=== PATIENT | female | born 1995 | race Two or more races ===

== ENCOUNTER 2025-02-18 09:05 | Emergency (ER) | payer OTHER, SELFPAY ==
--- OUTSIDE RECORDS SUMMARY | 2024-12-07 10:15 | XMS_ITS ---
Author Organization [facility] es Address [address] [place] [address] Care Team Providers Care Program Development Manager Name Role Phone Levon Koehler Primary Care Provider [phone] REASON FOR VISIT 1 month f/u Encounters Encounter Location Date Provider Diagnosis [facility] [address] [place] [address] 2024 Levon Koehler Plan Of Treatment Next Appt Details Provider Name:Levon Koehler, 03/14/2025 01:15:00 PM, [address] [place], [address], Progress Notes * GÓMEZ MYERS BDOB:1994 (29 yo F)Acc No.[id number]:12/07/2024 Behavioral Health Patient: Harman MCCRAY CHERAQUEL Marquez Provider: ABEBE Gamble :1995 A ge:29 Y S ex:Female Date:12/07/2024 Address:[address] [facility] [facility] Subjective: * Chief Complaints: * 1 . 1 month f/u. * Medical History: Objective: * Vitals: Assessment: Plan: * Treatment: * Images: * Electronic signature of ABEEB Fletcher on 02/18/2025 at 10:13 AM EDT Sign off status: Pending * Provider: ABEBE Gamble Date: 0 12/07/2024 Generated for Printi ng/Pedro/Luisitting on: 0 02/18/2025 10:13 AM EDT
--- OUTSIDE RECORDS SUMMARY | 2024-12-09 05:00 | XMS_ITS ---
Author Organization [facility] es Address [address] [place] [address] Care Team Providers Care Application Support Manager Name Role Phone Levon Koehler Primary Care Provider REASON FOR VISIT 1 MONTH F/U R/S FROM 12/07 Encounters Encounter Location Date Provider Diagnosis [facility] [address] [place] [address] 2024 Levon Koehler Plan Of Treatment Next Appt Details Provider Name:Levon Koehler, 03/14/2025 01:15:00 PM, [address] [place], [address], Progress Notes * LUCIAGÓMEZ PINEDA BDOB:1994 (29 yo F)Acc No.[id number]:12/09/2024 Behavioral Health Patient: CHRISTIAN RITCHIEKRISTI Marquez Provider: ABEBE Gamble :1995 A ge:29 Y S ex:Female Date:12/09/2024 Address:[address], [address], [place], [place] Subjective: * Chief Complaints: * 1 . 1 MONTH F/U R/S FROM 12/07. * Medical History: Objective: * Vitals: Assessment: Plan: * Treatment: * Images: * Electronic signature of ABEBE Fletcher on 02/18/2025 at 10:13 AM EDT Sign off status: Pending * Provider: ABEBE Gamble Date: 0 12/09/2024 Generated for Lianne benjamin/Pedro/Boris on: 0 02/18/2025 10:13 AM EDT
--- OUTSIDE RECORDS SUMMARY | 2025-02-06 09:15 | XMS_ITS ---
Author Organization [facility] es Address [address] [place] [address] Care Team Providers Care Baking Powder Mixer Name Role Phone Levon Koehler Primary Care Provider Allergies No Known Allergies REASON FOR VISIT BH F/U, Pt here for f/u. Pt went through a miscarriage in October and relapsed. Currently 40 days clean. Left [facility] today and is in [facility] in [place]. Mood is better, sleep is good, appetite has increased. [facility] Medications Medication SIG (Take, Route, Frequency, Duration) Notes Start Date End Date Status busPIRone HCl 5 MG Oral; Duration: 30 Days Active Naltrexone HCl 50 MG 1 tablet Oral twice a day; Duration: 30 days Active PROzac 20 MG 1 capsule Orally Onc e a day Not-Taking hydrOXYzine Pamoate 25 MG 1 capsule Oral ly three times a day (tid) as needed (prn); Duration: 30 days 04/19/2024 Not-Taking Prazosin HCl 2 MG 1 capsule at bedtime Oral Once a day; Duration: 30 days Active Propranolol HCl 40 MG 1 tablet Orally tw ice a day (bid) as needed (prn); Duration: 30 days 04/19/2024 Active traZODone HCl 50 MG 1 tablet at bedtime as needed Orally Once a day; Duration: 30 days 11/09/2024 Active carBAMazepine 200 MG 1 tablet Orally Twi ce a day; Duration: 30 days 11/09/2024 Active QUEtiapine Fumarate 100 MG 1 tablet Oral ly Once a day; Duration: 30 days 04/19/2024 Active ALPRAZolam 0.5 MG 1 tablet Orally Twice a day; Duration: 30 days As needed 02/06/2025 Active Vraylar 3 MG 1 capsule Orally Onc e a day; Duration: 30 days 04/19/2024 Active Gabapentin 400 MG 1 capsule Orally twi ce a day; Duration: 30 days 04/19/2024 Active Social History Tobacco Use: Social History Observation Description Date Details (start date - stop date) Unknown Alcohol Screening: Question Answer Notes Did you have a drink containing alcohol in the p ast year? No Points 0 Interpretation Negative Depression Screening (PHQ-9): Question Answer Notes Little interest or pleasure in doing things Near ly every day Feeling down, depressed, or hopeless Nearly ever y day Trouble falling or staying a sleep, or sleeping too much Nearly every day Feeling tired or having little energy Nearly bernarda ry day Poor appetite or overeating Nearly every day Feeling bad about yourself-o r that you are a failure or have let yourself or your family down Several days Trouble concentrating on thi ngs, such as reading the newspaper or watching television Several days Moving or speaking so slowly that other people could have noticed. Or the opposite being so fidgety or restless that you have been moving around a lot more than usual Not at all Thoughts that you would be b andreia off , or of hurting yourself in some way Not at all Total Score 17 Intepretation Moderately severe depression Tobacco Control (Standard) Question Answer Notes Tobacco use: Uses tobacco in other forms Problems Problem Type SNOMED Code ICD Code Onset Dates Problem Status W/U Status Risk Notes Problem Posttraumatic stress disorder (32256322) PTSD (post-traumati c stress disorder) (F43.10) Active confirmed Problem Opioid dependence in remission (485798108) Opioid dependence in remission (F11.21) Active confirmed Vital Signs Height 62 in 02/06/2025 Weight 194.4 lbs 02/06/2025 BMI 35.55 kg/m2 02/06/2025 Blood pressure systolic 151 mm Hg 02/07/20 25 Blood pressure diastolic 91 mm Hg 025 Oximetry 98 % 02/06/2025 Heart Rate 100 /min 02/06/2025 Encounters Encounter Location Date Provider Diagnosis [facility] [address] [place] [address] 02/06/2025 Levon Zakia Bipolar disorder, cu rrent episode mixed, moderate F31.62 ; PTSD (post-traumatic stress disorder) F43.10 and Opioid dependence in remission F11.21 Assessments Encounter Date Diagnosis (ICD Code) Assessment Notes Treatment Notes Treatment Clinical Notes Section Notes 02/06/2025 Bipolar disorder, current episode mixed, moderate (ICD-10 - F31.62) Patient will continue current treatment plan. Patient verbally acknowledges understanding instructions including medication education and has no further questions comments or concerns at this time. . Follow in 1 Month . Recommended treatment for Bipolar disorder includes FDA approved and OFF label medications: second generation antipsychotics and mood stabilizers. Discussed life threatening side effect of Lamotrigine. Pt is to monitor for new skin rashes or sensation of a sunburn or itchiness or redness, mouth sores or sores in mucus membranes, and call provider immediately and or go to ER, and stop the medication. Second generation antipsychotic medications can cause headache, drowsiness, agitation, dizziness, nausea, or extrapyramidal symptoms such as tremors, muscle spasms, slowness of movement or jerking of muscles. . Stable . The patient verbalizes understanding with all questions answered thoroughly and is in agreement with treatment plan. . Continue current treatment. Call for problems . GOALS: . Maintain medication regimen . _Improve mood stability . _Improve anxiety control . _Improve social and interpersonal functioning . Patient/Guardian will call sooner if symptoms worsen. Patient understands to go to ER if needed if symptoms become severe. . Crisis Intervention plan was discussed and agreed upon. Patient/Guardian will call 911 in case of emergency. Emergency contact information was provided to the patient/guardian. . Pharmacological management: . Alternative medication plans were discussed with the patient/guardian. All relevant side effects and potential adverse effects were discussed with the patient/guardian. Standard cautions and potential benefits were discussed. Patient/Guardian consented to the start/continuation of the treatment. 02/06/2025 PTSD (post-traumatic stress disorder) (ICD-10 - F43.10) 02/06/2025 Opioid dependence in remission (ICD-10 - F11.21) Plan Of Treatment Medication Medication Name Sig Start Date Stop Date Notes Naltrexone HCl 50 MG 1 tablet Oral twice a day; Duration: 30 days Prazosin HCl 2 MG 1 capsule at bedtime Oral Once a day; Duration: 30 days traZODone HCl 50 MG 1 tablet at bedtime as needed Orally Once a day; Duration: 30 days 11/09/2024 carBAMazepine 200 MG 1 tablet Orally Twi ce a day; Duration: 30 days 11/09/2024 QUEtiapine Fumarate 100 MG 1 tablet Oral ly Once a day; Duration: 30 days 04/19/2024 ALPRAZolam 0.5 MG 1 tablet Orally Twic e a day; Duration: 30 days 02/06/2025 Vraylar 3 MG 1 capsule Orally Onc e a day; Duration: 30 days 04/19/2024 Gabapentin 400 MG 1 capsule Orally twi ce a day; Duration: 30 days 04/19/2024 Next Appt Details Follow Up: 4 Weeks, Reason: med check Provider Name:Levon Koehler, 03/14/2025 01:15:00 PM, [address] [place] [address], [address], Progress Notes * GÓMEZ MYERS BDOB:1994 (29 yo F)Acc No.[id number]:02/06/2025 Behavioral Health Patient: Harman EDWIN GÓMEZ B Provider: ABEBE Gamble :1995 A ge:29 Y S ex:Female Date:02/06/2025 Address:[address] [place] [address], [place] [id number] Subjective: * Chief Complaints: * B H F/UPt here for f/u. Pt went through a miscarriage in October and relapsed. Currently 40 days clean. Left [facility] today and is in [facility] in [place]. Mood is better, sleep is good, appetite has increased. KS[facility] * HPI: C onstitutional: Patient is here for a follow-up appointment patient currently in a [facility] for an opioid relapse. Patient did detox and was recently released to the [facility] house. Patient is to reestablish with mental health care as is not offered at the fdc house. They did add naltrexone which we will continue in prazosin for PTSD. All other medications were continued from this this provider. We will continue current treatment plan with the additional medications. * Medical History: * Surgical History: yM YIN INJURY D&C 03/2024 * Hospitalization/Major Diagno stic Procedure: D enies Past Hospitalization * Family History: F ather: . M other: alive. 1 brother(s) , 3 sister(s) - healthy. 3 daughter(s) - healthy. . PATERNAL- CANCER, DM, MENTAL HEALTH MATERNAL- CANCER, DM, MENTAL HEALTH. * Social History: G eneral: A lcohol Screening D id you have a drink containing alcohol in the past year? N o P oints 0 I nterpretation N egative Depression Screening (PHQ-9) L ittle interest or pleasure in doing things?Nearly every day F eeling down, depressed, or hopeless N early every day T rouble falling or staying asleep, or sleeping too much N early every day F eeling tired or having little energy N early every day P oor appetite or overeating N early every day F eeling bad about yourself-or that you are a failure or have let yourself or your family down S everal T rouble concentrating on things, such as reading the newspaper or watching television S ever M oving or speaking so slowly that other people could have noticed. Or the opposite being so fidgety or restless that you have been moving around a lot more than usual N ot at all T houghts that you would be better off , or of hurting yourself in some way N ot at all T otal Score 1 7 I ntepretation M oderately severe depression Transition of Care E R/UC/hospital since last office visit? N o S pecialist seen since last office visit? N o Substance abuse/mental health issues of patient/family P atient - C affeine Use, Stress/Anxiety Social/Support Concerns P atient: N o Ability to understand healthcare/treatment P atient: G ood Communication Barrier L anguage Barrier?: N o T obacco Use: T obacco Control (Standard) T obacco use: U ses tobacco in other forms * Medications: T akingPropranolol HCl 40 MG Tablet 1 tablet Orally twice a day (bid) as needed (prn) Vraylar 3 MG Capsule 1 capsule Orally Once a day Gabapentin 400 MG Capsule 1 capsule Orally twice a day QUEtiapine Fumarate 50 MG Tablet 1-2 tablet at bedtime Orally Once a day traZODone HCl 50 MG Tablet 1 tablet at bedtime as needed Orally Once a day ALPRAZolam 0.5 MG Tablet 1 tablet Orally Twice a day As neededcarBAMazepine 200 MG Tablet 1 tablet Orally Twice a day Naltrexone HCl 50 MG Tablet Oral busPIRone HCl 5 MG Tablet Oral Prazosin HCl 1 MG Capsule Oral Taking Propranolol HCl 40 MG Tablet 1 tablet Orally twice a day (bid) as needed (prn) Taking Vraylar 3 MG Capsule 1 capsule Orally Once a day Taking Gabapentin 400 MG Capsule 1 capsule Orally twice a day Taking QUEtiapine Fumarate 50 MG Tablet 1-2 tablet at bedtime Orally Once a day Taking traZODone HCl 50 MG Tablet 1 tablet at bedtime as needed Orally Once a day Taking ALPRAZolam 0.5 MG Tablet 1 tablet Orally Twice a day As neededTaking carBAMazepine 200 MG Tablet 1 tablet Orally Twice a day Taking Naltrexone HCl 50 MG Tablet Oral Taking busPIRone HCl 5 MG Tablet Oral Taking Prazosin HCl 1 MG Capsule Oral Not-Taking/PRNhydrOXYzine Pamoate 25 MG Capsule 1 capsule Orally three times a day (tid) as needed (prn) PROzac 20 MG Capsule 1 capsule Orally Once a day Not-Taking/PRN hydrOXYzine Pamoate 25 MG Capsule 1 capsule Orally three times a day (tid) as needed (prn) Not-Taking/PRN PROzac 20 MG Capsule 1 capsule Orally Once a day * Allergies: N .K.D.A.no[Allergies Verified] Objective: * Vitals: H t: 62 in, Wt: 194.4 lbs, BMI:35.55Index, BP: 151/91 mm Hg, SaO2:98%, HR: 100 /min. * Examination: G eneral Examination: GENERAL APPEARANCE: A lert and oriented, cooperative. NEUROLOGIC EXAM: a lert and oriented x 3, no tremor, normal gait, appropriate for age. PSYCH g ood eye contact, oriented to person, oriented to place, oriented to time, appropriate mood and affect, denies SI/HI, affect normal, affect appropriate, appropriate for age, good eye contact, no thought disorder. General . AIMS EXAM:.AIMS Muscles of Facial Expression: NoneAIMS Lips and Perioral Area: NoneAIMS Jaw Area Involuntary Movements: NoneAIMS Tongue Involuntary Movements: NoneAIMS Upper Arms, Wrists, Hands, Fingers: NoneAIMS Lower Legs, Knees, Ankles, Toes: NoneAIMS Overall Abnormal Movement Severity: NoneAIMS Incapacitation Abnormal Movement: NoneAIMS Self Awareness of Abnormal Movement: Aware, None notedAIMS Current Teeth, Denture Problems: NoAIMS Movements Disappear in Sleep: No. .MENTAL STATUS EXAM:.Appearance: Appropriately dressed and groomed, good eye contact, cooperative, pleasantBehavior/Motor Activity: NormalGait/Station: Within normal limitsBH Speech: NormalMood: GoodAffect: FullThought processes/Associations: Logical and goal directedThought Content: Non-psychoticCognition/Attention/Memory/Concentration: Alert and oriented x 4; grossly intact attention; memory-recent/remote judged adequate by interviewerInsight: GoodJudgement: GoodBH language: Within normal limitsFund of Knowledge: Adequate.. Assessment: * Assessment: 1. B ipolar disorder, current episode mixed, moderate - F31.62 (Primary) 2 .?PTSD (post-traumatic stress disorder) - F43.10 3 . O pioid dependence in remission - F11.21 Plan: * Treatment: 2. P TSD (post-traumatic stress disorder) Refill Prazosin HCl Capsule, 2 MG, 1 capsule at bedtime, Oral, Once a day, 30 days, 30 Capsule, Refills 3. 3. O pioid dependence in remission Refill Naltrexone HCl Tablet, 50 MG, 1 tablet, Oral, twice a day, 30 days, 60 Tablet, Refills 3.? * Procedure Codes: 3 080F DIAST BP = 90 MM [id number] SYST BP >= 140 MM HG * Follow Up: 4 Weeks (Reason: med check) * Images: * Sign off status: Completed true * Provider: ABEBE Gamble Date: 02/06/2025 Generated for Lianne benjamin/Pedro/Boris on: 02/18/2025 10:13 AM EDT History and Physical Notes * Examination Category Sub-Category Detail Notes Category Not es General Examination GENERAL APPEARANCE: Alert an d oriented, cooperative NEUROLOGIC EXAM: alert and oriented x 3, no tremor, normal gait, appropriate for age DIABETIC FOOT EXAM Monofilament: normal PSYCH good eye contact, or iented to person, oriented to place, oriented to time, appropriate mood and affect, denies SI/HI, affect normal, affect appropriate, appropriate for age, good eye contact, no thought disorder General .AIMS EXAM:.AIMS Mus cles of Facial Expression: NoneAIMS Lips and Perioral Area: NoneAIMS Jaw Area Involuntary Movements: NoneAIMS Tongue Involuntary Movements: NoneAIMS Upper Arms, Wrists, Hands, Fingers: NoneAIMS Lower Legs, Knees, Ankles, Toes: NoneAIMS Overall Abnormal Movement Severity: NoneAIMS Incapacitation Abnormal Movement: NoneAIMS Self Awareness of Abnormal Movement: Aware, None notedAIMS Current Teeth, Denture Problems: NoAIMS Movements Disappear in Sleep: No. .MENTAL STATUS EXAM:.Appearance: Appropriately dressed and groomed, good eye contact, cooperative, pleasantBehavior/Motor Activity: NormalGait/Station: Within normal limitsBH Speech: NormalMood: GoodAffect: FullThought processes/Associations: Logical and goal directedThought Content: Non-psychoticCognition/Attention/Memory/Concentration: Alert and oriented x 4; grossly intact attention; memory-recent/remote judged adequate by interviewerInsight: GoodJudgement: GoodBH language: Within normal limitsFund of Knowledge: Adequate.
[2025-02-18 09:15] VITALS: BP 98/78; PULSE 108; TEMP 37.2; O2SAT 99; BMI 33.8
--- NOTE | 2025-02-18 09:46 | ED.GENADUL1 ---
HPI HPI - General Adult General Chief complaint: Abdominal Pain Stated complaint: VOMITING STOMACH PAIN Time Seen by Provider: 02/18/25 09:20 Source: patient Mode of arrival: walk-in History of Present Illness HPI narrative: 29-year-old female presents for nausea vomiting diarrhea and abdominal pain which began at 3:00 this morning. She has had multiple episodes of diarrhea and her pain is severe and continuous. Related Data Home Medications ?Medication ?Instructions ?Recorded ?Confirmed alprazolam 0.5 mg tablet 0.5 mg PO PRN anxiety 02/18/25 carbamazepine 200 mg tablet 200 mg PO 02/18/25 cariprazine 3 mg capsule (Vraylar) 3 mg PO DAILY 02/18/25 02/18/25 hydroxyzine pamoate 50 mg capsule mg 02/18/25 naltrexone 50 mg tablet 50 mg PO BID 02/18/25 02/18/25 propranolol 40 mg tablet 40 mg PO 02/18/25 Previous Rx's ?Medication ?Instructions ?Recorded dicyclomine 10 mg capsule 10 mg PO QID PRN abdominal pain 02/18/25 #20 caps ondansetron 4 mg disintegrating 4 mg PO Q6H PRN nausea and 02/18/25 tablet vomiting #20 tabs Allergies Allergy/AdvReac Type Severity Reaction Status Date / Time No Known Drug Allergies Allergy Verified 02/18/25 09:19 Opioid HPI Opioid Management Most Recent Opioid Data: Ur Phencyclidine Scrn, (NEGATIVE) Negative Today, 14:14 Review of Systems ROS Narrative A ten point review of systems is negative except as noted above. Exam Narrative Exam Narrative: Nurses note and vital signs reviewed and patient is not hypoxic. General: The patient appears uncomfortable and is rolling around on the bed. Skin: Warm, dry, no pallor noted. There is no rash noted. Head: Normocephalic, atraumatic Eye: Normal conjunctiva, no drainage Ears, Nose, Mouth, and Throat: oral mucosa is moist. Nares patent. Cardiovascular: Regular Rate and Rhythm Respiratory: Patient is in no distress, no accessory muscle use, lungs are clear to auscultation, no wheezing, rales or rhonchi Back: non-tender GI: Nondistended, diffusely tender Musculoskeletal: The patient has no evidence of calf tenderness, no pitting edema, symmetrical pulses noted bilaterally Neurological: A&O, normal speech Psychiatric: Cooperative Constitutional Vital Signs, click to edit/add: Last Vital Signs Temp 99 F 02/18/25 09:15 Pulse 87 02/18/25 13:22 Resp 18 02/18/25 13:22 BP 139/89 02/18/25 11:27 Pulse Ox 100 02/18/25 13:22 Course Vital Signs Vital signs: Vital Signs Temperature 99 F 02/18/25 09:15 Pulse Rate 108 H 02/18/25 09:15 Respiratory Rate 20 02/18/25 09:15 Blood Pressure 98/78 02/18/25 09:15 Pulse Oximetry 99 02/18/25 09:15 Temperature 99 F 02/18/25 09:15 Pulse Rate 87 02/18/25 13:22 Respiratory Rate 18 02/18/25 13:22 Blood Pressure 139/89 02/18/25 11:27 Pulse Oximetry 100 02/18/25 13:22 Medical Decision Making MDM Narrative Medical decision making narrative: The patient feels very much better and is essentially asymptomatic at this point. She seems to have improved the most after she was given IM Bentyl. CAT scan shows cysts on her right kidney and she has microscopic hematuria. No evidence of colitis or diverticulitis. The importance of following up with family physician and reference librarian was discussed thoroughly. Differential Diagnosis Differential Diagnosis: Gastroenteritis, colitis, diverticulitis, UTI Lab Data Lab results reviewed: Yes I reviewed the patient's lab results Labs: Lab Results 02/18/25 02/18/25 02/18/25 Range/Units 10:56 11:31 14:14 WBC 17.6 H (4.0-11.0) 10^3/uL RBC 5.10 (4.20-5.40) 10^6/uL Hgb 14.5 (12.0-16.0) g/dL Hct 44.5 (36.0-48.0) % MCV 87.3 (81.0-99.0) fL MCH 28.4 (26.7-34.0) pg MCHC 32.6 (29.9-35.2) g/dL RDW 11.6 (11.0-15.0) % Plt Count 417 (150-450) 10^3/uL MPV 8.6 L (9.5-13.5) fL Seg Neuts % (Manual) 76.0 H (43.0-75.0) Band Neutrophils % 13.0 H (0-5) % Lymphocytes % (Manual) 6.0 L (20.5-60.0) % Monocytes % (Manual) 5.0 (1.7-12.0) % Eosinophils % (Manual) 0.0 L (0.9-7.0) % Basophils % (Manual) 0.0 L (0.2-2.0) % Neutrophils # (Manual) 13.37 H (1.4-6.5) 10^3/uL Band Neutrophils # 2.3 H (0.0-0.3) 10^3/uL Lymphocytes # (Manual) 1.05 L (1.20-3.80) 10^3/uL Monocytes # (Manual) 0.88 H (0.30-0.80) 10^3/uL Eosinophils # (Manual) 0.00 (0.00-0.70) 10^3/uL Basophils # (Manual) 0.00 (0.00-0.10) 10^3/uL Sodium 139 142 (136-145) mmol/L Potassium 6.2 H* 5.9 H (3.5-5.1) mmol/L Chloride 102 107 (98-107) mmol/L Carbon Dioxide 23.1 25.0 (21.0-32.0) mmol/L Anion Gap 20.1 15.9 BUN 19.0 H 20.0 H (7.0-18.0) mg/dL Creatinine 0.71 0.65 (0.55-1.02) mg/dL Est GFR ( Amer) >60 >60 (>=60 mL/min/1.73m^2) Est GFR (Non-Af Amer) >60 >60 (>=60 mL/min/1.73m^2) BUN/Creatinine Ratio 26.8 30.8 Glucose 129 H 120 H (74-106) mg/dL Calcium 10.2 H 8.9 (8.5-10.1) mg/dL Total Bilirubin 0.2 (0.2-1.0) mg/dL Direct Bilirubin <0.1 (0.0-0.2) mg/dL AST 26 (15-37) U/L ALT 28 (14-59) U/L Alkaline Phosphatase 106 (46-116) U/L Total Protein 7.3 (6.4-8.2) g/dL Albumin 4.2 (3.4-5.0) g/dL Globulin 3.1 g/dL Albumin/Globulin Ratio 1.4 Amylase 38 (25-115) U/L Lipase 23.0 (16.0-77.0) U/L Serum HCG, Qual Negative (NEGATIVE) Urine Color Lt. yellow (YELLOW) Urine Clarity Clear (CLEAR) Urine pH 5.5 (5.0-9.0) Ur Specific [place] <=1.005 A (1.005-1.025) Urine Protein Negative (NEG/TRACE) mg/dL Urine Glucose (UA) Negative (NEGATIVE) mg/dL Urine Ketones Negative (NEGATIVE) mg/dL Urine Occult Blood Moderate A (NEGATIVE) Urine Nitrite Negative (NEGATIVE) Urine Bilirubin Negative (NEGATIVE) Urine Urobilinogen 0.2 (0.2-1.0) EU/dL Ur Leukocyte Esterase Negative (NEGATIVE) Urine RBC 10-20 A (0-2) #/HPF Urine WBC None seen (NONE SEEN) #/HPF Ur Squamous Epith Cells Rare (NONE/RARE) #/LPF Urine Crystals None seen (None Seen) #/HPF Urine Bacteria Trace A (NONE SEEN) #/HPF Urine Casts None seen (NONE SEEN) #/LPF Urine Mucus None seen (NONE SEEN) Ur Culture Indicated? No Urine Opiates Screen Negative (NEGATIVE) Ur Buprenorphine Scrn Negative (NEGATIVE) Ur Oxycodone Screen Negative (NEGATIVE) Urine Methadone Screen Negative (NEGATIVE) Ur Barbiturates Screen Negative (NEGATIVE) U Tricyclic Antidepress Negative (NEGATIVE) Ur Phencyclidine Scrn Negative (NEGATIVE) Ur Amphetamines Screen Negative (NEGATIVE) U Methamphetamines Scrn Negative (NEGATIVE) U Benzodiazepines Scrn Positive A (NEGATIVE) Urine Cocaine Screen Negative (NEGATIVE) U Cannabinoids Screen Negative (NEGATIVE) Imaging Data CT scan - abdomen: Radiologist's impression: ITS Impressions Abdomen/Pelvis CT 02/18/25 11:29 IMPRESSION: Negative acute inflammatory process or bowel obstruction. Heterogeneous appearance of the right kidney with multifocal hypodensities noted. Attenuation values may favor multifocal hemorrhagic and proteinaceous cysts. Impression dictated by: Sigifredo Matthews M.D. 02/18/2025 12:35 PM Dictation Location: [place] [address] Electronically authenticated by: [id number] Y Date: 02/18/2025 12:35 ECG Data Attestation: I personally reviewed and interpreted this ECG as follows: (EKG on my interpretation shows sinus rhythm with a rate of 97 and no acute change) Discharge Plan Discharge Chief Complaint: Abdominal Pain Clinical Impression: Diarrhea, Nausea and vomiting, Renal cyst, Hematuria, microscopic Patient Disposition: Home, Self-Care Time of Disposition Decision: 14:53 Condition: Good Mode of Transportation: Private Vehicle Prescriptions / Home Meds: New ondansetron 4 mg tablet,disintegrating 4 mg PO Q6H PRN (Reason: nausea and vomiting) Qty: 20 0RF dicyclomine 10 mg capsule 10 mg PO QID PRN (Reason: abdominal pain) Qty: 20 0RF No Action alprazolam 0.5 mg tablet 0.5 mg PO PRN (Reason: anxiety) hydroxyzine pamoate 50 mg capsule propranolol 40 mg tablet 40 mg PO naltrexone 50 mg tablet 50 mg PO BID carbamazepine 200 mg tablet 200 mg PO Vraylar 3 mg capsule 3 mg PO DAILY Print Language: Georgian Instructions: Acute Nausea and Vomiting (ED), Acute Diarrhea (ED) Additional Instructions: Follow-up with PCP, list provided. You should see a reference librarian (kidney doctor) about the cysts on your right kidney. Referrals: Physician,Non-Staff, MD [Primary Care Provider] - 1 week
--- OUTSIDE RECORDS SUMMARY | 2025-02-18 10:13 | XMS_ITS | Patient Health Record ---
Author Organization [employer] [facility] Address [address] [place] [address] Care Team Providers Care Environmental Web Crawler Name Role Phone Zakia Levon Primary Care Provider Dr. Baldo Bui Unavailable [phone] Chelsie Sanchez Unavailable [phone] Magalie Cervantes Unavailable [phone] Allergies No Known Allergies Results Component Value Reference Range Notes urine Reviewed date:03/02/2024 01:45:40 PM Interpretation:POSITIVE Performing Lab: Notes/Report: POSITIVE result POSITIVE Reason For Referral No Information Medications Medication SIG (Take, Route, Frequency, Duration) Notes Start Date End Date Status Propranolol HCl 40 MG 1 tablet Orally tw ice a day (bid) as needed (prn); Duration: 30 days 04/19/2024 Active busPIRone HCl 5 MG Oral; Duration: 30 Days Active Naltrexone HCl 50 MG 1 tablet Oral twice a day; Duration: 30 days Active Vraylar 3 MG 1 capsule Orally Onc e a day; Duration: 30 days 04/19/2024 Active traZODone HCl 50 MG 1 tablet at bedtime as needed Orally Once a day; Duration: 30 days 11/09/2024 Active PROzac 20 MG 1 capsule Orally Onc e a day Not-Taking hydrOXYzine Pamoate 25 MG 1 capsule Oral ly three times a day (tid) as needed (prn); Duration: 30 days 04/19/2024 Not-Taking Gabapentin 400 MG 1 capsule Orally twi ce a day; Duration: 30 days 04/19/2024 Active carBAMazepine 200 MG 1 tablet Orally Twi ce a day; Duration: 30 days 11/09/2024 Active QUEtiapine Fumarate 100 MG 1 tablet Oral ly Once a day; Duration: 30 days 04/19/2024 Active Prazosin HCl 2 MG 1 capsule at bedtime Oral Once a day; Duration: 30 days Active ALPRAZolam 0.5 MG 1 tablet Orally Twice a day; Duration: 30 days As needed 02/06/2025 Active Social History Tobacco Use: Social History [...] Problem Status W/U Status Risk Notes Problem Tobacco user (620187716) Nicotine dependence, unspecified, uncomplicated (F17.200) Active confirmed Problem Mixed bipolar affective disorder, moderate (321841588) Bipolar disorder, current episode mixed, moderate (F31.62) Active confirmed Problem Acute stress reaction (34727990) Acute stress reaction (F43.0) Active confirmed Problem Anxiety (24082671) Anxiety (F41.9) Active confirmed Problem Posttraumatic stress disorder (54898022) PTSD (post-traumatic stress disorder) (F43.10) Active confirmed Problem Opioid dependence in remission (335940328) Opioid dependence in remission (F11.21) Active confirmed Problem Adjustment disorder with mixed emotional features (43955846) Situational mixed anxiety and depressive disorder (F43.23) Active confirmed Vital Signs Heart Rate 100 /min 02/06/2025 Temperature 98.2 degrees Fahrenheit 08/09/2024 Blood pressure diastolic 91 mm Hg 02/06/2025 Oximetry 98 % 02/06/2025 Height 62 in 02/06/2025 Blood pressure systolic 151 mm Hg 02/06/2025 Weight 194.4 lbs 02/06/2025 BMI 35.55 kg/m2 02/06/2025 Encounters Encounter Location Date Provider Diagnosis [place] [address] [place] [address] 03/02/2024 Magalie Cervantes Fatigue, unspecified type R53.83 and Nicotine dependence, unspecified, uncomplicated F17.[address] [address] 04/19/2024 [facility] Bipolar disorder, current episode mixed, moderate F31.[address] [address] 02/06/2025 [facility] Bipolar disorder, current episode mixed, moderate F31.62 ; PTSD (post-traumatic stress disorder) F43.10 and Opioid dependence in remission F11.[address] [address] 05/17/2024 [facility] Bipolar disorder, current episode mixed, moderate F31.[address] [address] 06/14/2024 [facility] Bipolar disorder, current episode mixed, moderate F31.62 and Anxiety F41.9 [address] [place] [address] 08/09/2024 [facility] Bipolar disorder, current episode mixed, moderate F31.[address] [address] 11/09/2024 [facility] Bipolar disorder, current episode mixed, moderate F31.62 [facility] [address] [place] [address] 02/19/2024 Magalie Cervantes [address] [place] [address] 02/22/2024 Magalie Cervantes [facility] [address] [place] [address] 07/13/2024 [facility] Bipolar disorder, current episode mixed, moderate F31.62 [facility] [address] [place] [address] 10/07/2024 [facility] Bipolar disorder, current episode mixed, moderate F31.62 [facility] [address] [place] [address] 11/16/2024 [facility] [place] [address] [place] [address] 03/05/2024 Baldo Bui [place] [address] [place] [address] 08/31/2024 [facility] Bipolar disorder, current episode mixed, moderate F31.62 [place] [address] [place] [address] 10/07/2024 [facility] Bipolar disorder, current episode mixed, moderate F31.62 [facility] [address] [place] [address] 12/06/2024 [facility] Bipolar disorder, current episode mixed, moderate F31.62 Assessments Encounter Date Diagnosis (ICD Code) Assessment Notes Treatment Notes Treatment Clinical Notes Section Notes 08/09/2024 Bipolar disorder, current episode mixed, moderate (ICD-10 [...] consented to the start/continuation of the treatment. 10/07/2024 Bipolar disorder, current episode mixed, moderate (ICD-10 - F31.62) 04/19/2024 Bipolar disorder, current episode mixed, moderate (ICD-10 - F31.62) Patient will travel Vraylar 1.5 mg for the next 30 days samples provided from office stock. Patient also will use gabapentin b 300 mg twice a day, as needed hydroxyzine, propranolol, and Seroquel at night for sleep. Follow up in 30 days to discuss and evaluate this treatment plan. patient verbally acknowledges understanding instructions including medication education and has no further questions comments or concerns at this time. Sed on DSM V, this patient meets the criteria for the diagnosis of: _ . Bipolar 1 Disorder . Recommended treatment is: _ Recommended treatment for Bipolar disorder includes FDA [...] of movement or jerking of muscles. . The patient verbalizes understanding with all questions answered thoroughly and is in agreement with treatment plan. . . Continue current treatment Tolerating meds well, compliant Call for problems . GOALS: . Maintain medication regimen _Improve mood stability _Improve anxiety control _Improve social and interpersonal functioning . Informed consent obtained: YES, we discussed the diagnosis/diagnose s, the treatment options, treatment(s) recommended vs. no treatment. We discussed risks and benefits of treatment options, treatment recommendations vs. no treatment. . Currently at low risk for self harm. Denies ongoing feelings of hopelessness. Denies ongoing suicidal ideation, intent or plan in session. . 06/14/2024 Bipolar disorder, current episode mixed, moderate (ICD-10 - F31.62) Informed consent obtained: YES, we discussed the diagnosis/diagnose s, the treatment options, treatment(s) recommendations vs. no treatment. We discussed risks and benefits of treatment options, treatment recommendations vs. no treatment. Currently at low risk for self harm. Denies ongoing feelings of hopelessness. Denies ongoing suicidal ideation, intent or plan in session. Pharmacological management: Alternative medication plans were discussed with the patient and or guardian. All relevant and serious adverse effects were discussed. Standard precautions and potential benefits were discussed. Patient/Guardian consented to begin medication/ continue treatment plan. questions answered satisfactorily, agreeable to treatment plan Cont current treatment Tolerating meds well, compliant Call for problems Follow up 3 months Patient/Guardian will call sooner if symptoms worsen. Patient understands to go to the ER if needed if symptoms become severe. Crisis intervention plan was discussed and agreed upon. Patient/Guardian will call 911 in case of emergency. Emergency contact information was provided to the patient/guardian. 02/06/2025 Bipolar disorder, current episode mixed, moderate [...] PTSD (post-traumatic stress disorder) (ICD-10 - F43.10) 08/31/2024 Bipolar disorder, current episode mixed, moderate (ICD-10 - F31.62) 05/17/2024 Bipolar disorder, current episode mixed, moderate (ICD-10 - F31.62) Patient will alter current treatment plan. Patient will increase Vraylar to 3 mg samples provided from sample stock. Patient will also increase Seroquel for improved sleep hygiene, prescription also given for as needed alprazolam 0.25 mg twice daily for anxiety. Patient verbally acknowledges understanding instructions including medication [...] consented to the start/continuation of the treatment. 03/02/2024 Fatigue, unspecified type (ICD-10 - R53.83) Urine HCG positive. She follows with Dr. Morrell, educated to call his office to notify of positive result and menses two months late. ER for any acute changes in condition. 11/09/2024 Bipolar disorder, current episode mixed, moderate (ICD-10 - F31.62) Patient will add carbamazepine 200 mg twice daily and follow up in 30 days to discuss and evaluate. Trazodone 50 mg also added for increased sleep hygiene. Patient will continue current treatment plan. Patient [...] benefits were discussed. Patient/Guardian consented to the start/continuatio n of the treatment. 10/07/2024 Bipolar disorder, current episode mixed, moderate (ICD-10 - F31.62) 07/13/2024 Bipolar disorder, current episode mixed, moderate (ICD-10 - F31.62) 12/06/2024 Bipolar disorder, current episode mixed, moderate (ICD-10 - F31.62) 03/02/2024 Nicotine dependence, unspecified, uncomplicated (ICD-10 - F17.200) Reviewed risks associated with continued smoking. Described supports used for cessation including medication and classes. Encouraged cessation. 02/06/2025 Opioid dependence in remission (ICD-10 - F11.21) 06/14/2024 Anxiety (ICD-10 - F41.9) 03/02/2024 Other Body Mass Index : Care Instructions material was published, Body Mass Index: Care Instructions material was printed Plan Of Treatment Next Appt Details Provider Name:Levon Koehler, 03/14/2025 01:15:00 PM, [address] [place] [address], [phone], Insurance Providers Payer Name Payer Address Payer Phone Subscriber Number Group Number Insured Name Patient Relationship to Insured Coverage Start Date Coverage End Date [facility] [place] [facility] [address] [place] [address] [phone] [id number] CHRISTIAN MYERSNE Self - patient is the insured 4 [facility] [employer] e [address] [place] [address] [id number] LUCIAKAROL PINEDAGÓMEZ Self - patient is the insured 4 [employer] [address] [place] [address] [id number] LUCIACHRISTIAN PINEDANE Self - patient is the insured 2 3 zMEDICAID C[employer] after [employer] [address] [place] [address] [id number] GÓMEZ MYERS Self - patient is the insured 2 3 zDENTAL DQ [employer] 22 [address] [place] [address] [id number] GÓMEZ MYERS Self - patient is the insured 2 3 zDental MEDICAID C[employer] after [employer] 22 [address] [place] [address] [id number] GÓMEZ MYERS Self - patient is the insured 2 3 [employer] [place] Medicaid [address] [place] [address] [id number] GÓMEZ MYERS Self - patient is the insured 3 Dental [employer] [place] [address] [place] [address] [id number] GÓMEZ MYERS Self - patient is the insured 3 Dental Wrap [employer] [address] [place] [address] [id number] GÓMEZ MYERS Self - patient is the insured 3 Wrap [employer] [address] [place] [address] [id number] GÓMEZ MYERS Self - patient is the insured 3 Medical (General) History Medical History History ICD Code ARTHRITIS PTSD ANXIETY Bipolar Surgical History Surgery Date(Month/Year) KNEE INJURY D&C 03/2024
--- OUTSIDE RECORDS SUMMARY | 2025-02-18 10:13 | XMS_ITS | Clinical Summary ---
Author Organization [facility] Healthcare Address [address] [place] [address] Care Team Providers Care Middle School Coach Name Role Phone Rell Goldsmith MD Primary Care Provider [phone] Allergies No known active allergies Medications ibuprofen 800 MG tablet 1 tablet Orally 3 times a day -PRN for 7 days Active acetaminophen (Tylenol 8 Hour) 650 MG ER tablet Take 650 mg by mouth every 8 (eight) hours if needed for mild pain. Do not crush, chew, or split. Active traZODone (Desyrel) 50 MG tablet 60 EA, 0 Refill(s), take 1-2 tablets by mouth at bedtime, Refills(s) 0 02/23/2024 Active Active Problems No known active problems Family History Medical History Relation Name Comments Arthritis Father Cancer Father Hypertension Father Relation Name Status Comments Father Alive Mother Alive Social History Tobacco Use Types Packs/Day Years Used Date Smoking Tobacco: Former Cigarettes Passive Smoke Exposure: Past Smokeless Tobacco: Never Tobacco Cessation:Counseling Given: Not Answered Alcohol Use Standard Drinks/Week Comments Never 0 (1 standard drink = 0.6 oz pure alcohol) caffeine intake: more than 4 cups per day Comments Unknown Sex and Gender Information Value Date Recorded Sex Assigned at Not on file Legal Sex Female 7:24 PM EDT Gender Identity Not on file Sexual Orientation Not on file Last Filed Vital Signs Vital Sign Reading Time Taken Comments Blood Pressure 149/96 07/02/2020 12:00 PM EST Pulse - - Temperature 36.3 C (97.4 F) 01/21/2024 2:35 PM EDT Respiratory Rate - - Oxygen Saturation - - Inhaled Oxygen Concentration - - Weight 73.9 kg (163 lb) 03/01/2024 1:12 PM EDT Height 157.5 cm (5' 2 ) 03/01/2024 1:12 PM EDT Body Mass Index 29.81 03/01/2024 1:12 PM EDT Plan of Treatment Upcoming Encounters Date Type Department Care Team (Late st Contact Info) Description 03/02/2025 1:00 PM EDT Office Visit [facility] [address] [place] [address] Fabian Blackburn DO [address] [place] [address] [place] [address] [employer] MED[employer] Care Teams Middle School Coach Relationship Specialty Start Date End Date Rell Goldsmith MD [address] [place] [address] PCP - General Internal Medicine 02/17/23
--- OUTSIDE RECORDS SUMMARY | 2025-02-18 10:13 | XMS_ITS | Clinical Summary ---
Author Organization [facility] Address [address] [place] [address] Care Team Providers Care Metal Roofer Name Role Phone Sravani Freed MD Primary Care Provider + Allergies No known active allergies Medications cyclobenzaprine (FLEXERIL) 5 MG tablet Take 1 tablet by mouth 2 times daily as needed for Muscle spasms 10 tablet 0 12/27/2015 Active ibuprofen (ADVIL;MOTRIN) 800 MG tablet Take 1 tablet by mouth every 8 hours as needed for Pain 20 tablet 0 12/27/2015 Active Encounters Date Type Department Care Team Description 01/23/2025 4:54 AM EDT - 01/23/2025 11:59 [place] [address] Discharge Disposition: Home or Self Care 01/09/2025 5:18 AM EDT - 01/09/2025 11:59 PM EDT Hospital Encounter [place] [id number] Discharge Disposition: Home or Self Care from Last 3 Months Social History Tobacco Use Types Packs/Day Years Used Date Smoking Tobacco: Every Day Comments Unknown Sex and Gender Information Value Date Recorded Sex Assigned at Not on file Legal Sex Female 7:27 AM EDT Gender Identity Not on file Sexual Orientation Not on file Last Filed Vital Signs Vital Sign Reading Time Taken Comments Blood Pressure 137/70 12/27/2015 8:16 AM EDT Pulse 85 12/27/2015 7:33 AM EDT Temperature 36.7 C (98 F) 12/27/2015 7:33 AM EDT Respiratory Rate 20 12/27/2015 7:33 AM EDT Oxygen Saturation 100% 12/27/2015 7:33 AM EDT Inhaled Oxygen Concentration - - Weight - - Height - - Body Mass Index - - Plan of Treatment Health Maintenance Due Date Last Done Comments DTaP/Tdap/Td vaccine (1 - Tdap) 2014 COVID-19 Vaccine (2023-2 5 season) 2024 Flu vaccine (Season Ended) 2025 Polio vaccine Aged Out No longer elig ible based on patient's age to complete this topic Procedures Procedure Name Priority Date/Time Associated Diagnosis Comments HEPATITIS PANEL, ACUTE Routine 7:10 AM EDT HIV SCREEN Routine 01/23/2025 7:10 AM EDT HCG, SERUM, QUALITATIVE Routine 01/23/2025 7:10 AM EDT COMPREHENSIVE METABOLIC PANEL Routine 01/23/2025 7:10 AM EDT CBC Routine 01/23/2025 7:10 AM EDT C.TRACHOMATIS N.GONORRHOEAE DNA Routine 01/09/2025 8:03 AM EDT WET PREP, GENITAL Routine 01/09/2025 8:0 3 AM EDT from Last 3 Months Results * Hepatitis Panel, Acute (01/23/2025 7:10 AM EDT) Hepatitis B Surface Ag NONREACTIVE NONREACTIVE 01/23/2025 7:10 AM EDT [facility] Hepatitis C Ab NONREACTIVE NONREACTIVE 01/24/20 7:10 AM EDT [facility] Comment: The hepatitis C procedure used in our laboratory is a Chemiluminescent test specific for three recombinant HCV antigens. A negative anti-HCV result indicates that the antibodies to hepatitis C virus are not present at this time. Individuals with reactive anti-HCV should be considered infected and infectious until proven otherwise. Confirmation of all equivocal or reactive results is recommended by ordering HCV RNA by PCR. Hep B Core Ab, IgM NONREACTIVE NONREACTIVE 09/2024 7:10 AM EDT [facility] Hep A IgM NONREACTIVE NONREACTIVE 01/23/2025 7:10 AM EDT [facility] 01/23/2025 7:10 AM EDT 01/23/2025 7:24 AM EDT Beto Atkinson APRN [facility] IMMUNOLOGY ORDERABLES F inal Result Performing Organization Address [facility] Co de Phone Number [facility] [address] [phone] [facility] [address] [place] [address] * HIV Screen (01/23/2025 7:10 AM EDT) HIV Ag/Ab NONREACTIVE NONREACTIVE 01/23/2025 7:10 AM EDT [facility] Comment: No laboratory evidence of HIV infection. If acute HIV infection is suspected, consider testing for HIV-1 RNA. 01/23/2025 7:10 AM EDT 01/23/2025 7:24 AM EDT Beto Atkinson APRN [facility] IMMUNOLOGY ORDERABLES F inal Result Performing Organization Address [facility] de Phone Number [facility] [address] [place] [address], [facility] [phone] [facility] [address] [place] [address] * CBC (01/23/2025 7:10 AM EDT) WBC 7.2 3.5 - 11.3 k/uL 01/23/2025 7:10 AM EDT [facility] RBC 4.32 3.95 - 5.11 m/uL 01/23/2025 7:10 AM EDT [facility] Hemoglobin 12.1 11.9 - 15.1 g/dL 01/23/2025 7:10 AM EDT [facility] Hematocrit 39.4 36.3 - 47.1 % 01/23/2025 7:10 AM EDT [facility] MCV 91.2 82.6 - 102.9 fL 01/23/2025 7:10 AM EDT [facility] MCH 28.0 25.2 - 33.5 pg 01/23/2025 7:10 AM EDT [facility] MCHC 30.7 28.4 - 34.8 g/dL 01/23/2025 7:10 AM EDT [facility] RDW 11.8 11.8 - 14.4 % 01/23/2025 7:10 AM EDT [facility] Platelets 370 138 - 453 k/uL 01/23/2025 7:10 AM [facility] MPV 8.8 8.1 - 13.5 fL 01/23/2025 7:10 AM [facility] NRBC Automated 0.0 0.0 per 100 WBC 01/23/2025 7:10 AM T [facility] 01/23/2025 7:10 AM EDT 01/23/2025 7:24 AM EDT Beto Atkinson MESSAGE AND DELIVERY SERVICE PRICER - CONFERENCE AND EVENT ORGANISER HEMATOLOGY ORDERABLES F inal Result [facility] [address] [phone] * HCG Qualitative, Serum (01/23/2025 7:10 AM EDT) Preg, Serum NEGATIVE NEGATIVE 01/23/2025 7:10 AM EDT [facility] Comment: Specimens with hCG levels near the threshold of the test (25 mIU/mL) may give a negative or indeterminate result. In such cases, another test should be performed with a new specimen in 48-72 hours. If early is suspected clinically in this setting, correlation with quantitative serum b-hCG level is suggested. [employer] has confirmed the use of plasma for this test. This has not been cleared or approved by the U.S. Food and Drug Administration. The FDA has determined that such clearance is not necessary. 01/23/2025 7:10 AM EDT 01/23/2025 7:24 AM EDT Beto Atkinson MESSAGE AND DELIVERY SERVICE PRICER - CONFERENCE AND EVENT ORGANISER CHEMISTRY ORDERABLES Fi nal Result [facility] [address] [phone] * (ABNORMAL) Comprehensive Metabolic Panel (01/23/2025 7:10 AM EDT) Sodium 139 136 - 145 mmol/L 01/23/2025 7:10 AM [facility] Potassium 4.3 3.7 - 5.3 mmol/L 01/23/2025 7:10 AM [facility] Chloride 102 98 - 107 mmol/L 01/23/2025 7:10 AM [facility] CO2 27 20 - 31 mmol/L 01/23/2025 7:10 AM [facility] Anion Gap 10 9 - 16 mmol/L 01/23/2025 7:10 AM [facility] Glucose 89 74 - 99 mg/dL 01/23/2025 7:10 AM [facility] BUN 12 6 - 20 mg/dL 01/23/2025 7:10 AM [facility] Creatinine 0.5 0.50 - 0.90 mg/dL 01/23/2025 7:10 AM [facility] Est, Glom Filt Rate >90 >60 mL/min/1.7 3m2 01/23/2025 7:10 AM [facility] Comment: These results are not intended for use in patients <18 years of age. eGFR results are calculated without a race factor using the 2020 CKD-EPI equation. Careful clinical correlation is recommended, particularly when comparing to results calculated using previous equations. The CKD-EPI equation is less accurate in patients with extremes of muscle mass, extra-renal metabolism of creatine, excessive creatine ingestion, or following therapy that affects renal tubular secretion. BUN/Creatinine Ratio 24(H) 9 - 20 01/23/2025 7:10 AM EDT [facility] Calcium 9.2 8.6 - 10.4 mg/dL 01/23/2025 7:10 AM EDT [facility] Total Protein 7.1 6.6 - 8.7 g/dL 01/23/2025 7:10 AM EDT [facility] Albumin 4.6 3.5 - 5.2 g/dL 01/23/2025 7:10 AM EDT [facility] Albumin/Globulin Ratio 1.9 1.0 - 2.5 01/23/2025 7:10 AM EDT [facility] Total Bilirubin <0.2 0.00 - 1.20 mg/dL 01/23/2025 7:10 AM T [facility] Alkaline Phosphatase 98 35 - 104 U/L 01/23/2025 7:10 AM EDT [facility] ALT 36(H) 10 - 35 U/L 01/23/2025 7:10 AM T [facility] AST 32 10 - 35 U/L 01/23/2025 7:10 AM T [facility] 01/23/2025 7:10 AM EDT 01/23/2025 7:24 AM EDT Beto Atkinson MESSAGE AND DELIVERY SERVICE PRICER - CONFERENCE AND EVENT ORGANISER CHEMISTRY ORDERABLES Fi nal Result [facility] [address] [phone] * C.trachomatis N.gonorrhoeae DNA (01/09/2025 8:03 AM EDT) Specimen Description .VAGINAL SPECIMEN 01/09/2025 8:03 AM EDT [facility] C. trachomatis DNA NEGATIVE NEGATIVE 01/09/2025 8:03 AM EDT [facility] Comment: CHLAMYDIA TRACHOMATIS DNA not detected by nucleic acid amplification. This test is intended for medical purposes only and is not valid for the evaluation of suspected sexual abuse or for other forensic purposes. In certain contexts, culture may be required to meet applicable laws and regulations for diagnosis of C. trachomatis and N. gonorrhoeae infections. Per 2014 CDC recommendations, this test does not include confirmation of positive results by an alternative nucleic acid target. N. gonorrhoeae DNA NEGATIVE NEGATIVE 01/09/2025 8:03 AM EDT [facility] Comment: NEISSERIA GONORRHOEAE DNA not detected by nucleic acid amplification. This test is intended for medical purposes only and is not valid for the evaluation of suspected sexual abuse or for other forensic purposes. In certain contexts, culture may be required to meet applicable laws and regulations for diagnosis of C. trachomatis and N. gonorrhoeae infections. Per 2014 CDC recommendations, this test does not include confirmation of positive results by an alternative nucleic acid target. SPECIMEN FROM CERVIX OR VAGINA / Unknown 01/09/2025 8:03 AM EDT 01/09/2025 8:28 AM EDT Beto Atkinson APRN [facility] MICROBIOLOGY - GENERAL ORDERABLES Final Result [facility] [address] [place] [address], [facility] [phone] [place] [address], [facility] [phone] * Wet prep, genital (01/09/2025 8:03 AM EDT) Specimen Description .VAGINAL SPECIMEN 01/09/2025 8:03 AM EDT [facility] Direct Exam NO YEAST OBSERVED 01/09/2025 8:03 AM EDT [facility] Direct Exam NO TRICHOMONAS SEEN 01/09/2025 8:03 AM EDT [facility] Direct Exam NO CLUE CELLS SEEN 01/09/2025 8:03 AM EDT [facility] SPECIMEN FROM CERVIX OR VAGINA / Unknown 01/09/2025 8:03 AM EDT 01/09/2025 8:28 AM EDT Beto Atkinson APRN [facility] MICROBIOLOGY - GENERAL ORDERABLES Final Result [facility] [address] [place] [address], [facility] [phone] from Last 3 Months Insurance [employer] Care Teams Metal Roofer Relationship Specialty Start Date End Date Sravani Freed MD PCP - General 12/27/15
--- OUTSIDE RECORDS SUMMARY | 2025-02-18 10:14 | XMS_ITS | Patient Health Record ---
Author Organization [facility] Address [facility] [address] [place] [address] Support Name Relationship Address Phone GÓMEZ MYERS Guarantor Unknown [phone] Reason For Referral No Information Plan Of Treatment No Information
--- OUTSIDE RECORDS SUMMARY | 2025-02-18 10:14 | XMS_ITS | Encounter Summary ---
Author Organization [facility] Address [address] [place] [address] Care Team Providers Care Credit And Collections Representative Name Role Phone Hira Reaves Unavailable Rell Goldsmith MD Primary Care Provider [phone] Encounter Details Date Type Department Care Team (Late st Contact Info) Description 02/12/2024 Clinisync Result Encounter [facility] Unsolicited Fabian Blackburn DO [address] [place] [address] Social History Tobacco Use Types Packs/Day Years Used Date Smoking Tobacco: Former Cigarettes Passive Smoke Exposure: Past Smokeless Tobacco: Never Alcohol Use Standard Drinks/Week Comments Never 0 (1 standard drink = 0.6 oz pure alcohol) caffeine intake: more than 4 cups per day Comments Unknown Sex and Gender Information Value Date Recorded Sex Assigned at Not on file Legal Sex Female 7:24 PM EDT Gender Identity Not on file Sexual Orientation Not on file documented as of this encounter Plan of Treatment Upcoming Encounters Date Type Department Care Team (Late st Contact Info) Description 03/02/2025 1:00 PM EDT Office Visit [facility] [address] [id number] Fabian Blackburn DO [address] [place] [address] documented as of this encounter Procedures Procedure Name Priority Date/Time Associated Diagnosis Comments MRI KNEE W/O CONTRAST LEFT 02/12/2024 3:54 PM EDT documented in this encounter Results * MRI KNEE W/O CONTRAST LEFT (02/12/2024 3:54 PM EDT) Anatomical Region Laterality Modality Other 02/12/2024 3:54 PM EDT Narrative 02/15/2024 5:04 PM EDT Exam Date/Time: 02/12/2024 17:00 EDT Reason for Exam: M25.561 Report IMPRESSION: High-grade essentially complete ACL graft tearing, with possible few intact fibers, and probable scarring in the intercondylar notch anteriorly. Probable postsurgical changes involving the lateral meniscus, without evidence for recurrent tear. Other findings as discussed. EXAMINATION: MRI Knee w/o Contrast Left HISTORY: Left knee pain. TECHNIQUE: Routine non-contrast MRI of the knee LEFT COMPARISON: MRI 01/02/2022. RESULT: MENISCI: Medial Meniscus: Appears intact. Lateral Meniscus: Increased signal involving the posterior horn, probably postsurgical. No meniscal displacement or para meniscal cyst, suggest a recurrent tear. LIGAMENTS: High-grade tearing involving the ACL graft, with near complete tearing, and possible few intact fibers, with probable scarring within the intercondylar notch anteriorly. PCL grossly intact. MCL grossly intact with postsurgical changes. LCL complex grossly intact. CARTILAGE: Small areas of low-grade partial-thickness chondral loss/fissuring involving the patella and lateral compartment. TENDONS: Distal quadriceps intact. Patellar tendon intact. Popliteus intact. BONES AND MARROW: No evidence of fracture or bone marrow replacing process. MUSCLES: Muscle bulk and signal intensity are normal. JOINT FLUID AND SYNOVIUM: No joint effusion. No synovitis. No Sawnat's cyst. OTHER: No other significant abnormality. Report Ordering Provider: Fabian Blackburn FINAL REPORT Dictated: 02/15/2024 5:01 pm Gian Woo MD. Signed (Electronic Signature): 02/15/2024 5:01 pm Signed by: Gian Woo MD Transcribed by: JEWELS Technologist: EVERTON Procedure Note Radiology, Radiologist, - 02/15/2024 Exam Date/Time: 02/12/2024 17:00 EDT Reason for Exam: M25.561 Report IMPRESSION: High-grade essentially complete ACL graft tearing, with possible fewintact fibers, and probable scarring in the intercondylar notch anteriorly. Probable postsurgical changes involving the lateral meniscus, withoutevidence for recurrent tear. Other findings as discussed. EXAMINATION: MRI Knee w/o Contrast Left HISTORY: Left knee pain. TECHNIQUE: Routine non-contrast MRI of the knee LEFT COMPARISON: MRI 01/02/2022. RESULT: MENISCI: Medial Meniscus: Appears intact. Lateral Meniscus: Increased signal involving the posterior horn,probably postsurgical. No meniscal displacement or para meniscal cyst, suggest arecurrent tear. LIGAMENTS: High-grade tearing involving the ACL graft, with near completetearing, and possible few intact fibers, with probable scarring within theintercondylar notch anteriorly. PCL grossly intact. MCL grossly intact with postsurgicalchanges. LCL complex grossly intact. CARTILAGE: Small areas of low-grade partial-thickness chondralloss/fissuring involving the patella and lateral compartment. TENDONS: Distal quadriceps intact. Patellar tendon intact. Popliteusintact. BONES AND MARROW: No evidence of fracture or bone marrow replacingprocess. MUSCLES: Muscle bulk and signal intensity are normal. JOINT FLUID AND SYNOVIUM: No joint effusion. No synovitis. No Sawant'scyst. OTHER: No other significant abnormality. Report Ordering Provider: Fabian Blackburn FINAL REPORT Dictated: 02/15/2024 5:01 pm Gian Woo MD Signed (Electronic Signature): 02/15/2024 5:01 pm Signed by: Gian Woo MD Transcribed by: JEWELS Technologist: EVERTON us Fabian Blackburn DO [facility] Final Result documented in this encounter Visit Diagnoses Not on filedocumented in this encounter Care Teams Credit And Collections Representative Relationship Specialty Start Date End Date Hira Reaves PA [address] [place] [address] PCP - [facility] 11/22/22 02/21/24 Rell Goldsmith MD [address] [place] [address] PCP - General Internal Medicine 02/17/23 documented as of this encounter
--- OUTSIDE RECORDS SUMMARY | 2025-02-18 10:14 | XMS_ITS | Encounter Summary ---
Author Organization [facility] Address [address] [place] [address] Care Team Providers Care Ophthalmic Medical Assistant Name Role Phone Hira Reaves Unavailable Rell Goldsmith MD Primary Care Provider [phone] Encounter Details Date Type Department Care Team (Late st Contact Info) Description 02/12/2024 Clinisync Result Encounter [facility] Unsolicited Fabian Blackburn DO [address] [place] [address] Social History Tobacco Use Types Packs/Day Years [...] [facility] [address] [phone] Fabian Blackburn DO [address] [place] [address] documented as of this encounter Procedures Procedure Name Priority Date/Time Associated Diagnosis Comments MRI KNEE W/O CONTRAST RIGHT 02/12/2024 3:54 PM EDT documented in this encounter Results * MRI KNEE W/O CONTRAST RIGHT (02/12/2024 3:54 PM EDT) Anatomical Region Laterality Modality Other 02/12/2024 3:54 PM EDT Narrative 02/15/2024 4:58 PM EDT Exam Date/Time: 02/12/2024 17:00 EDT Reason for Exam: M25.561 Report IMPRESSION: Chronic complete ACL tear. Essentially complete radial tear at the posterior root of the lateral meniscus. Osteochondral lesion of the lateral femoral condyle. EXAMINATION: MRI Knee w/o Contrast Right HISTORY: Right knee pain. No recent injury. TECHNIQUE: Routine non-contrast MRI of the knee RIGHT COMPARISON: MRI 01/13/2022. RESULT: MENISCI: Medial Meniscus: Appears grossly intact. Lateral Meniscus: Essentially complete radial tear at the posterior root, similar to prior. LIGAMENTS: Complete ACL tear, acute on the prior study. PCL, MCL, and LCL complex appear intact. CARTILAGE: Osteochondral lesion involving the lateral femoral condyle measuring approximately 12 x 12 mm, at the site of prior pivot shift type impaction fracture on the MRI from 2021. Underlying subchondral edema with at least small area of full-thickness chondral loss at this site. TENDONS: Distal quadriceps intact. Patellar tendon intact. Popliteus intact. BONES AND MARROW: No evidence for recent fracture. Osteochondral lesion as above. MUSCLES: Muscle bulk and signal intensity are normal. JOINT FLUID AND SYNOVIUM: No joint effusion. No synovitis. No Sawant's cyst. OTHER: No other significant abnormality. Ordering Provider: Fabian Blackburn FINAL REPORT Dictated: 02/15/2024 4:55 pm Gian Woo MD Signed (Electronic Signature): 02/15/2024 4:55 pm Signed by: Gian Woo MD Transcribed by: JEWELS Technologist: EVERTON Procedure Note Radiology, Radiologist, - 02/15/2024 Exam Date/Time: 02/12/2024 17:00 EDT Reason for Exam: M25.561 Report IMPRESSION: Chronic complete ACL tear. Essentially complete radial tear at the posterior root of the lateralmeniscus. Osteochondral lesion of the lateral femoral condyle. EXAMINATION: MRI Knee w/o Contrast Right HISTORY: Right knee pain. No recent injury. TECHNIQUE: Routine non-contrast MRI of the knee RIGHT COMPARISON: MRI 01/13/2022. RESULT: MENISCI: Medial Meniscus: Appears grossly intact. Lateral Meniscus: Essentially complete radial tear at the posterior root,similar to prior. LIGAMENTS: Complete ACL tear, acute on the prior study. PCL, MCL, and LCLcomplex appear intact. CARTILAGE: Osteochondral lesion involving the lateral femoral condylemeasuring approximately 12 x 12 mm, at the site of prior pivot shift type impactionfracture on the MRI from 2021. Underlying subchondral edema with at least small areaof full-thickness chondral loss at this site. TENDONS: Distal quadriceps intact. Patellar tendon intact. Popliteusintact. BONES AND MARROW: No evidence for recent fracture. Osteochondral lesionas above. MUSCLES: Muscle bulk and signal intensity are normal. JOINT FLUID AND SYNOVIUM: No joint effusion. No synovitis. No Sawant'scyst. OTHER: No other significant abnormality. Ordering Provider: Fabian Blackburn FINAL REPORT Dictated: 02/15/2024 4:55 pm Gian Woo MD. Signed (Electronic Signature): 02/15/2024 4:55 pm Signed by: Gian Woo MD Transcribed by: JEWELS Technologist: EVERTON Authorgardenia Provider Result Type Result Stat us Fabian Blackburn DO [facility] Final Result documented in this encounter Visit Diagnoses Not on filedocumented in this encounter Care Teams Ophthalmic Medical Assistant Relationship Specialty Start Date End Date Hira Reaves PA [address] [place] [address] PCP - [facility] 11/22/22 02/21/24 Rell Goldsmith MD [address] [place] [address] PCP - General Internal Medicine 02/17/23 documented as of this encounter
[2025-02-18] MEDS: ONDANSETRON 4 MG RAPDIS TABLET SL (10:30)
[2025-02-18] MEDS: 0.9 % SODIUM CHLORIDE 1,000 ML 1000 ML IV (10:59)
[2025-02-18 11:06] LABS: Hematocrit 44.5 % (36.0-48.0); Hemoglobin 14.5 g/dL (12.0-16.0); Mean Corpuscular HGB Conc 32.6 g/dL (29.9-35.2); Mean Corpuscular Hemoglobin 28.4 pg (26.7-34.0); Mean Corpuscular Volume 87.3 fL (81.0-99.0); Mean Platelet Volume 8.6 fL (9.5-13.5); Platelet Count 417 10^3/uL (150-450); Red Cell Distribution Width 11.6 % (11.0-15.0); White Blood Count 17.6 10^3/uL (4.0-11.0)
[2025-02-18] MEDS: DICYCLOMINE HCL 20 MG/2 ML VIAL IM (11:06)
[2025-02-18] MEDS: ONDANSETRON PF 4 MG/2 ML VIAL IV (11:06)
[2025-02-18 11:14] LABS: HCG Qualitative NEGATIVE (NEGATIVE); Internal Control Within Normal Limits
[2025-02-18 11:16] LABS: Anion Gap 20.1; BUN Creatinine Ratio 26.8; Calcium 10.2 mg/dL (8.5-10.1); Carbon Dioxide 23.1 mmol/L (21.0-32.0); Chloride 102 mmol/L (98-107); Estimated GFR (African America >60 (>=60 mL/min/1.73m^2); Estimated GFR (Non-African Ame >60 (>=60 mL/min/1.73m^2); Glucose 129 mg/dL (74-106); Sodium 139 mmol/L (136-145)
[2025-02-18 11:17] LABS: Potassium 6.2 mmol/L (3.5-5.1)
[2025-02-18 11:27] VITALS: BP 139/89; PULSE 99; O2SAT 100
--- NOTE | 2025-02-18 11:29 | ECG_ITS ---
[facility] Test Date: 2025-02-18 Pat Name: GÓMEZ MYERS Department: Room: - Gender: Female Shoe Coverer: : 1995 Requested By: Order Number: [id number] Reading MD: WHIT ZAPATA M.D. Measurements Intervals [place] Rate: 97 P: 53 ND: 156 QRS: 58 QRSD: 74 T: 19 QT: 344 QTc: 398 Interpretive Statements 1100 Sinus rhythm 4068 Nonspecific Twave abnormality 9130 borderline ECG No previous ECG available for comparison Electronically Signed On 02-18-2025 12:14:13 EDT by WHIT ZAPATA M.D.
--- NOTE | 2025-02-18 11:29 | CT_ITS ---
The [address] [address] Patient Name: GÓMEZ MYERS MRN: [id number] date: 1995 Sex: F Assigned Patient Location: ER Current Patient Location: ER Accession/Order Number: [id number] Exam Date: 02/18/2025 12:28 Report Date: 02/18/2025 12:35 At the request of: FREDY WALL MD Procedure: CT abdomen pelvis w con CT ABDOMEN AND PELVIS WITH INTRAVENOUS CONTRAST: CLINICAL HISTORY: Abdominal pain, elevated WBC COMPARISON: None TECHNIQUE: Spiral images were obtained through the abdomen and pelvis following the administration of intravenous contrast. This CT exam was performed using one or more following dose reduction techniques: Automated exposure control, adjustment of the mA and/or kV according to patient size, or use of iterative reconstruction technique. FINDINGS: Lung Bases: [No focal opacity.] Organs:Multifocal right renal lesions identified measuring approximately 70-80 Hounsfield units may favor underlying multifocal proteinaceous or hemorrhagic cyst. Otherwise kidneys symmetric in size and enhancement. No hydronephrosis. Otherwise liver, gallbladder, spleen, adrenals, pancreas unremarkable.[ GI: Mild retained stool within colon. No bowel obstruction. Unremarkable appendix.[ Pelvis:[Bladder and uterus unremarkable. No adnexal mass. No free air or free fluid] Peritoneum/Retroperitoneum:No free air or free fluid unremarkable aorta.[ Abd wall/Bones:No suspicious lesion.[ CT/CT abdomen pelvis w con IMPRESSION: Negative acute inflammatory process or bowel obstruction. Heterogeneous appearance of the right kidney with multifocal hypodensities noted. Attenuation values may favor multifocal hemorrhagic and proteinaceous cysts. Impression dictated by: Sigifredo Matthews M.D. 02/18/2025 12:35 PM Dictation Location: [place] [address] Electronically authenticated by: [id number] Y Date: 02/18/2025 12:35
[2025-02-18 11:31] LABS: Band Neutrophils Absolute 2.3 10^3/uL (0.0-0.3); Lymphocytes Absolute Manual 1.05 10^3/uL (1.20-3.80); Monocytes Absolute Manual 0.88 10^3/uL (0.30-0.80); Segmented Neut Absolute Manual 13.37 10^3/uL (1.4-6.5)
[2025-02-18 12:16] LABS: Anion Gap 15.9; BUN Creatinine Ratio 30.8; Calcium 8.9 mg/dL (8.5-10.1); Chloride 107 mmol/L (98-107); Estimated GFR (African America >60 (>=60 mL/min/1.73m^2); Estimated GFR (Non-African Ame >60 (>=60 mL/min/1.73m^2); Glucose 120 mg/dL (74-106); Potassium 5.9 mmol/L (3.5-5.1); Sodium 142 mmol/L (136-145)
[2025-02-18 12:20] LABS: Alanine Aminotransferase 28 U/L (14-59); Albumin Globulin Ratio 1.4; Albumin Level 4.2 g/dL (3.4-5.0); Alkaline Phosphatase 106 U/L (46-116); Amylase 38 U/L (25-115); Aspartate Amino Transferase 26 U/L (15-37); Bilirubin Direct <0.1 mg/dL (0.0-0.2); Bilirubin Total 0.2 mg/dL (0.2-1.0); Globulin 3.1 g/dL; Total Protein 7.3 g/dL (6.4-8.2)
[2025-02-18 13:22] VITALS: PULSE 87; O2SAT 100
[2025-02-18 14:21] LABS: Bilirubin Urine NEGATIVE (NEGATIVE); Blood Urine MODERATE (NEGATIVE); Clarity Urine CLEAR (CLEAR); Color Urine LT. YELLOW (YELLOW); Glucose Urine UA NEGATIVE (NEGATIVE); Ketones Urine NEGATIVE (NEGATIVE); Leukocyte Esterase Urine NEGATIVE (NEGATIVE); Nitrite Urine NEGATIVE (NEGATIVE); Protein Urine NEGATIVE (NEG/TRACE); Specific Gravity Urine <=1.005 (1.005-1.025); Urobilinogen Urine 0.2 EU/dL (0.2-1.0); pH Urine 5.5 (5.0-9.0)
[2025-02-18 14:42] LABS: Bacteria Urine TRACE #/HPF (NONE SEEN); Cannabinoid Screen Urine NEGATIVE (NEGATIVE); Cast Seen? NONE SEEN #/LPF (NONE SEEN); Cocaine Screen Urine NEGATIVE (NEGATIVE); Crystals Seen? None Seen #/HPF (None Seen); Mucus Urine NONE SEEN (NONE SEEN); Phencyclidine Screen Urine NEGATIVE (NEGATIVE); Squamous Epithelial Cell Urine RARE #/LPF (NONE/RARE); Urine Culture Indicated NO; WBC Urine NONE SEEN #/HPF (NONE SEEN)
[2025-02-18 14:43] LABS: Amphetamine Screen Urine NEGATIVE (NEGATIVE); Barbiturates Screen Urine NEGATIVE (NEGATIVE); Benzodiazepines Screen Urine POSITIVE (NEGATIVE); Buprenorphine Screen Urine NEGATIVE (NEGATIVE); Methadone Screen Urine NEGATIVE (NEGATIVE); Methamphetamines Screen Urine NEGATIVE (NEGATIVE); Opiate Screen Urine NEGATIVE (NEGATIVE); Oxycodone Screen Urine NEGATIVE (NEGATIVE); Tricyclic Antidepressant Urine NEGATIVE (NEGATIVE)
[2025-02-18 15:15] VITALS: BP 124/76; PULSE 97; O2SAT 100
== END 2025-02-18 15:15 | disposition home or self-care (01) ==
PROVIDERS: Emergency Provider Emergency Medicine
DX: R19.7 Diarrhea, unspecified (principal); R11.2 Nausea with vomiting, unspecified; N28.1 Cyst of kidney, acquired; R31.29 Other microscopic hematuria; R10.84 Generalized abdominal pain
CPT/HCPCS: 36415; 74177; 80048; 80076; 80307; 81001; 82150; 83690; 84703; 85007; 85027; 93005; 96361; 96372; 96374; 99285; J0500; J2405; Q0162; Q9967

== ENCOUNTER 2025-04-17 09:47 | Emergency (ER) | payer OTHER, SELFPAY ==
--- OUTSIDE RECORDS SUMMARY | 2024-12-09 05:00 | XMS_ITS ---
Author Organization [facility] [employer] es Address [address] [place] [address] Care Team Providers Care Director Pharmaceutical Name Role Phone Levon Koehler Primary Care Provider [phone] REASON FOR VISIT 1 MONTH F/U R/S FROM 12/07 Encounters Encounter Location Date Provider Diagnosis [facility] [address] [place] [address] 2024 Levon Koehler Plan Of Treatment Next Appt Details Provider Name:Codie lara, 04/18/2025 10:30:00 AM, [address] [place], [address], Progress Notes * LUCIAKAROL PINEDAGÓMEZ BDOB:1994 (30 yo F)Acc No.[id number]:12/09/2024 Behavioral Health Patient: Harman MCCRAY CHERAQUEL Marquez Provider: ABEBE Gamble :1995 A ge:29 Y S ex:Female Date:12/09/2024 Address:[address], [address], [place] Subjective: * Chief Complaints: * 1 . 1 MONTH F/U R/S FROM 12/07. * Medical History: Objective: * Vitals: Assessment: Plan: * Treatment: * Images: * Electronic signature of ABEBE Fletcher on 04/17/2025 at 09:57 AM EDT Sign off status: Pending * Provider: ABEBE Gamble Date: 0 12/09/2024 Generated for Lianne benjamin/Pedro/Boris on: 0 04/17/2025 09:57 AM EDT
--- OUTSIDE RECORDS SUMMARY | 2025-03-14 09:15 | XMS_ITS ---
Author Organization [facility] [employer] es Address [address] [place] [address] Care Team Providers Care Meter Technician Name Role Phone Levon Koehler Primary Care Provider REASON FOR VISIT 1 month f/u Encounters Encounter Location Date Provider Diagnosis [facility] [address] [place] [address] 2024 Levon Koehler Plan Of Treatment Next Appt Details Provider Name:Codie Ram Deborah marco, 04/18/2025 10:30:00 AM, [address] [facility] [place], [address], Progress Notes * GÓMEZ MYERS BDOB:1994 (30 yo F)Acc No.[id number]:03/14/2025 Behavioral Health Patient: Harman KAROL PINEDAGÓMEZ B Provider: ABEBE Gamble :1995 A ge:29 Y S ex:Female Date:03/14/2025 Address:[address] [facility] [place], [address], [place], [place] Subjective: * Chief Complaints: * 1 . 1 month f/u. * Medical History: Objective: * Vitals: Assessment: Plan: * Treatment: * Images: * Electronic signature of ABEBE Fletcher on 04/17/2025 at 09:57 AM EDT Sign off status: Pending * Provider: ABEBE Gamble Date: 0 03/14/2025 Generated for Lianne benjamin/Pedro/Luisitting on: 0 04/17/2025 09:57 AM EDT
--- OUTSIDE RECORDS SUMMARY | 2025-04-16 17:35 | XMS_ITS | Continuity of Care Document ---
Author Organization [facility] Address [address] [place] [address] Phone Care Team Providers Care Transcription Typist Name Role Phone [employer] [place] Primary Care Provide r Arben Henao DO Emergency Provider Care Teams Patient Care Team Team Status: Active Member Role Status Dates [place] [employer] Primary Care Provider Activ e Patient Care Team Team Status: Inactive Member Role Status Dates [place] [employer] Primary Care Provider Activ e Start: April 16, 2025 End: April 16, 2025 Arben Henao DO Emergency Provider Active St art: April 16, 2025 End: April 16, 2025 Chief Complaint and Reason for Visit Chief Complaint Admit Date abd pain April 16, 2025 7: 33pm Allergies, Adverse Reactions, Alerts Allergen Type Severity Reaction Last Updated Verified Status No Known Allergies Allergy Unknown April 16, 2025 7:4 7pm Yes Active Social History Smoking Status Status Start Date End Date Date of Observa tion Smokes tobacco daily (finding) April 16, 2025 7:45pm Observation Status Observation Response Date of Response Legal Sex Female (finding) Sex Assigned At Female March Status N April 16 Problems Inactive/Resolved Problems Medical Problem Onset Date Status Comments Drug abuse Unknown Resolved Problem List cl rebecca-up per request of Phys. EHR Cmte Depression Unknown Resolved Problem List cl rebecca-up per request of Phys. EHR Cmte Dysuria Unknown Resolved Medications Medication Status Dose Units Route Directions Qty Days St art Date Stop Date End Date Instructions Adherence Gabapentin 400 mg capsule Active 400 MG PO Twice daily 2024 1:00am Unknown Quetiapine 50 mg tablet Active 50 MG PO Bedtime 2024 1:00am 50mg to 100 mg daily Unknown Cephalexin 500 mg capsule Discont inued 500 MG PO Twice daily March 13, 2023 12:00a m Febr [email or web address] 5:32p m Procedures Procedure Date Performed Status Urine Culture April 16, 2025 active Relevant Diagnostic Tests and/or Laboratory Data Laboratory Results Test Collection Date/Time Result Date/Time Result Interpretation Reference Range Result Comment Performing Site Urine Color April 16, 2025 7:50pm April 16, 2025 8:54pm Light-yel low Yellow [facility] [id number] [address] [facility] [address] Urine Appearance April 16, 2025 7:50pm April 16, 2025 8:54pm Clear Clear [facility] [id number] [address] [facility] [address] Urine Specific [place] April 16, 2025 7:50pm April 16, 2025 8:54pm 1.026 1.001-1.03 0 [facility] [id number] [address] [facility] [address] Urine pH April 16, 2025 7:50pm April 16, 2025 8:54pm 6.0 5.0-9.0 [facility] [id number] [address] [facility] [address] Urine Leukocyte Esterase April 16, 2025 7:50pm April 16, 2025 8:54pm 2+ Above high normal Negative [facility] [id number] [address] [facility] [address] Urine Nitrite April 16, 2025 7:50pm April 16, 2025 8:54pm Negative Negative [facility] [id number] [address] [facility] [address] Urine Protein April 16, 2025 7:50pm April 16, 2025 8:54pm Negative mg/dL Negative [facility] [id number] [address] [facility] [address] Urine Glucose (UA) April 16, 2025 7:50pm April 16, 2025 8:54pm Normal mg/dL Normal [facility] [id number] [address] [facility] [address] Urine Ketones April 16, 2025 7:50pm April 16, 2025 8:54pm Negative Negative [facility] [id number] [address] [facility] [address] Urine Urobilinoge n April 16, 2025 7:50pm April 16, 2025 8:54pm Normal mg/dL Normal [facility] [id number] [address] [facility] [address] Urine Bilirubin April 16, 2025 7:50pm April 16, 2025 8:54pm Negative Negative [facility] [id number] [address] [facility] [address] Urine Occult Blood April 16, 2025 7:50pm April 16, 2025 8:54pm Trace Above high normal Negative [facility] [id number] [address] [facility] [address] Urine RBC April 16, 2025 7:50pm April 16, 2025 9:02pm 5-9 [HPF] Above high normal 0-4 [facility] [id number] [address] [facility] [address] Urine WBC April 16, 2025 7:50pm April 16, 2025 9:02pm 5-9 [HPF] Above high normal 0-4 [facility] [id number] [address] [facility] [address] Urine Squamous Epithelial Cells April 16, 2025 7:50pm April 16, 2025 9:02pm 1-2 [HPF] 0-2 [facility] [id number] [address] [facility] [address] Urine Bacteria April 16, 2025 7:50pm April 16, 2025 9:02pm None seen [HPF] None Seen [facility] [id number] [address] [facility] [address] Urine Hyaline Casts April 16, 2025 7:50pm April 16, 2025 9:02pm None [LPF] 0-8 [facility] [id number] [address] [facility] [address] Urine Mucus April 16, 2025 7:50pm April 16, 2025 9:02pm Rare [LPF] [facility] [id number] [address] [facility] [address] Urine HCG, Qualitative April 16, 2025 7:50pm April 16, 2025 8:56pm Negative [facility] [id number] [address] [place] [address] Vital Signs Vital Reading Result Reference Range Collection Date/Time Height 62 [in_i] April 16 7:47pm Weight 93.70 kg April 16 7:47pm Body Temperature 98.3 [degF] 97.6-99.0 March 7:47pm Heart Rate 83 /min 60-100 April 16 7:47pm Respiratory rate 18 /min 12-March 7:47pm Oxygen saturation by Pulse oximetry 100 % 95-100 April 16, 2025 7: 47pm BP Systolic 151 mm[Hg] 100-140 April 16 7:47pm BP Diastolic 79 mm[Hg] 60-100 April 16 7:47pm Advance Directives Advance Directive Response Recorded Date/ Time Advance Directives No November 14, 2 023 9:18am Insurance Providers Guarantor Tash Corrales Address [address] [facility] [address] Contact Info. Home Phone: Payer Policy Id Subscriber's Name Subscriber Id Effective Date Expiration Date [employer] [id number] Tash Marquez [place] [id number] [facility] Medicaid [id number] Tash B [place] [id number] HCAP/HFA/FAP Active [id number] Tash Alma [place] [id number] Encounters Encounter Location(s) Arrival/Admit Date Discharge/Depart Date Provider(s) Departed Emergency -Emergency Room April 16, 2025 7:33pm April 16, 2025 9:34pm Plan of Treatment Future Tests Future scheduled test information is unavailable Pending Tests Test Name Ordered Date Scheduled Date Corrected White Blood Count April 16, 2025 8: 32pm Uncorrected WBC Count April 16, 2025 8:32pm Red Blood Count April 16, 2025 8:32pm Hemoglobin April 16, 2025 8:32pm Hematocrit April 16, 2025 8:32pm Mean Corpuscular Volume April 16, 2025 8:32pm Mean Corpuscular Hemoglobin April 16, 2025 8: 32pm Mean Corpuscular Hemoglobin Concent April 16, 2025 8:32pm Red Cell Distribution Width April 16, 2025 8: 32pm Platelet Count April 16, 2025 8:32pm Mean Platelet Volume April 16, 2025 8:32pm Neutrophils (%) (Auto) April 16, 2025 8:32pm Lymphocytes (%) (Auto) April 16, 2025 8:32pm Monocytes (%) (Auto) April 16, 2025 8:32pm Eosinophils (%) (Auto) April 16, 2025 8:32pm Basophils (%) (Auto) April 16, 2025 8:32pm Nucleated RBC Relative Count (auto) April 16, 2025 8:32pm Neutrophils # (Auto) April 16, 2025 8:32pm Lymphocytes # (Auto) April 16, 2025 8:32pm Monocytes # (Auto) April 16, 2025 8:32pm Eosinophils # (Auto) April 16, 2025 8:32pm Basophils # (Auto) April 16, 2025 8:32pm Urine Culture April 16, 2025 7:50pm Glucose Level April 16, 2025 8:32pm Blood Urea Nitrogen April 16, 2025 8:32pm Creatinine April 16, 2025 8:32pm Estimated GFR (CKD-EPI) April 16, 2025 8:32pm Sodium Level April 16, 2025 8:32pm Potassium Level April 16, 2025 8:32pm Chloride Level April 16, 2025 8:32pm Carbon Dioxide Level April 16, 2025 8:32pm Anion Gap April 16, 2025 8:32pm Calcium Level April 16, 2025 8:32pm Total Protein April 16, 2025 8:32pm Albumin April 16, 2025 8:32pm Globulin April 16, 2025 8:32pm Albumin/Globulin Ratio April 16, 2025 8:32pm Total Bilirubin April 16, 2025 8:32pm Aspartate Amino Transf (AST/SGOT) April 16, 025 8:32pm Alanine Aminotransferase (ALT/SGPT) April 16, 2025 8:32pm Alkaline Phosphatase April 16, 2025 8:32pm Pharmacy Creatinine Clearance (Chem April 16, 2025 8:32pm Future Visits Future appointment information is unavailable Referrals to Other Providers Reason for Referral Referral Start Date Provider Provider Contact Information Provider Address [facility] [place] Work Phone: [facility] [address] [facility] [address] Future Procedures Procedure Name Ordered Date Scheduled Date Urine Culture April 16, 2025 8:37pm April 16, 2025 7:50pm Complete Blood Count Auto Diff April 16, 2025 8:32pm April 16, 2025 8:32pm Future Medications Future medication information is unavailable Patient Instructions Patient instructions are unavailable
[2025-04-17 09:57] VITALS: BP 146/81; PULSE 97; TEMP 36.7; O2SAT 98; BMI 37.1
--- OUTSIDE RECORDS SUMMARY | 2025-04-17 09:57 | XMS_ITS | Encounter Summary ---
Author Organization [facility] Address [address] [place] [address] Care Team Providers Care Executive Asst Name Role Phone Hira Reaves Unavailable Rell Goldsmith MD Primary Care Provider [phone] Encounter Details Date Type Department Care Team (Late st Contact Info) Description 02/12/2024 Clinisync Result Encounter [facility] External Department Unsolicited Fabian Blackburn, DO [address] [place] [address] Social History Tobacco Use Types Packs/Day Years [...] as of this encounter Plan of Treatment Not on file documented as of this encounter Procedures Procedure [...] Woo MD Transcribed by: JEWELS Technologist: [place] Fabian Blackburn DO [facility] Final Result documented in this encounter Visit Diagnoses Not on filedocumented in this encounter Care Teams Executive Asst Relationship Specialty Start Date End Date Hira Reaves PA [address] [place] [address] PCP - [facility] 11/22/22 02/21/24 Rell Goldsmith MD [address] [place] [address] PCP - General Internal Medicine 02/17/23 documented as of this encounter
--- OUTSIDE RECORDS SUMMARY | 2025-04-17 09:57 | XMS_ITS | Patient Health Record ---
Author Organization [employer] [facility] [place] [facility] Address [address] [place] [address] Care Team Providers Care Public Works Inspector Name Role Phone Pierce Koehlergigi Primary Care Provider Daniel Chelsie Unavailable [phone] Allergies No Known Allergies Reason For Referral No Information Medications Medication [...] W/U Status Risk Notes Problem Tobacco user (685794738) Nicotine dependence, unspecified, uncomplicated (F17.200) Active confirmed Problem Mixed bipolar affective disorder, moderate (302331711) Bipolar disorder, current episode mixed, moderate (F31.62) Active confirmed Problem Acute stress reaction (76308599) Acute stress reaction (F43.0) Active confirmed Problem Anxiety (23695313) Anxiety (F41.9) Active confirmed Problem Posttraumatic stress disorder (99864922) PTSD (post-traumatic stress disorder) (F43.10) Active confirmed Problem Opioid dependence in remission (689778635) Opioid dependence in remission (F11.21) Active confirmed Problem Adjustment disorder with mixed emotional features (63647421) Situational mixed anxiety and depressive disorder (F43.23) Active confirmed Vital Signs Heart Rate 100 /min 02/06/2025 Temperature 98.2 degrees Fahrenheit 08/09/2024 Oximetry 98 % 02/06/2025 Blood pressure diastolic 91 mm Hg 02/06/2025 Height 62 in 02/06/2025 Blood pressure systolic 151 mm Hg 02/06/2025 Weight 194.4 lbs 02/06/2025 BMI 35.55 kg/m2 02/06/2025 Encounters Encounter Location Date Provider Diagnosis [place] [address] [place] [address] 07/13/2024 Kip Soviak Bipolar disorder, current episode mixed, moderate F31.62 [place] [address] [place] [address] 10/07/2024 Kip Soviak Bipolar disorder, current episode mixed, moderate F31.62 [place] [address] [place] [address] 11/16/2024 Kip Soviak [place] [address] [place] [address] 08/31/2024 Kip Soviak Bipolar disorder, current episode mixed, moderate F31.62 [place] [address] [place] [address] 10/07/2024 Kip Soviak Bipolar disorder, current episode mixed, moderate F31.62 [facility] [address] [place] [address] 12/06/2024 Kip Soviak Bipolar disorder, current episode mixed, moderate F31.62 [facility] [address] [place] [address] 04/19/2024 Kip Soviak Bipolar disorder, current episode mixed, moderate F31.62 [facility] [address] [place] [address] 05/17/2024 Kip Soviak Bipolar disorder, current episode mixed, moderate F31.62 [facility] [address] [place] [address] 06/14/2024 Kip Soviak Bipolar disorder, current episode mixed, moderate F31.62 and Anxiety F41.9 [facility] [address] [place] [address] 08/09/2024 Kip Soviak Bipolar disorder, current episode mixed, moderate F31.62 [facility] [address] [place] [address] 11/09/2024 Levon Koehler Bipolar disorder, current episode mixed, moderate F31.[address] [facility] Alex [address] [place] [place] [address] 02/06/2025 Levon Koehler Bipolar disorder, current episode mixed, moderate F31.62 ; PTSD (post-traumatic stress disorder) F43.10 and Opioid dependence in remission F11.21 Assessments Encounter Date Diagnosis (ICD Code) Assessment Notes Treatment Notes Treatment Clinical Notes Section Notes 04/19/2024 Bipolar disorder, current episode mixed, moderate [...] ideation, intent or plan in session. . 05/17/2024 Bipolar disorder, current episode mixed, moderate [...] consented to the start/continuation of the treatment. 06/14/2024 Bipolar disorder, current episode mixed, moderate [...] contact information was provided to the patient/guardian. 07/13/2024 Bipolar disorder, current episode mixed, moderate (ICD-10 - F31.62) 08/09/2024 Bipolar disorder, current episode mixed, moderate [...] consented to the start/continuation of the treatment. 08/31/2024 Bipolar disorder, current episode mixed, moderate (ICD-10 - F31.62) 10/07/2024 Bipolar disorder, current episode mixed, moderate (ICD-10 - F31.62) 10/07/2024 Bipolar disorder, current episode mixed, moderate (ICD-10 - F31.62) 11/09/2024 Bipolar disorder, current episode mixed, moderate [...] to the start/continuatio n of the treatment. 12/06/2024 Bipolar disorder, current episode mixed, moderate (ICD-10 - F31.62) 02/06/2025 Bipolar disorder, current episode mixed, moderate [...] the start/continuation of the treatment. 02/06/2025 PTSD (post-traumati c stress disorder) (ICD-10 - F43.10) 02/06/2025 Opioid dependence in remission (ICD-10 - F11.21) 06/14/2024 Anxiety (ICD-10 - F41.9) Plan Of Treatment Next Appt Details Provider Name:Codie lara, 04/18/2025 10:30:00 AM, [address] [place], [place] [address], [address], Insurance Providers Payer Name Payer Address Payer Phone Subscriber Number Group Number Insured Name Patient Relationship to Insured Coverage Start Date Coverage End Date [employer] [place] Medicaid [address] [place] [address] [id number] GÓMEZ MYERS Self - patient is the insured 4 [employer] [address] [place] [address] [id number] GÓMEZ MYERS Self - patient is the insured 4 [employer]-termed [address] [place] [address] [id number] GÓMEZ MYERS Self - patient is the insured 2 3 zMEDICAID CFC after [employer] E[employer]ter[employer] [address] [place] [address] [id number] GÓMEZ MYERS Self - patient is the insured 2 3 zDENTAL DQ [employer] E[employer]ter[employer] 22 [address] [place] [address] [id number] GÓMEZ MYERS Self - patient is the insured 2 3 zDental MEDICAID CFC after [employer] E[employer]ter[employer] 22 [address] [place] [address] [id number] GÓMEZ MYERS Self - patient is the insured 2 3 [employer] [place] Medicaid [address] [place] [address] [id number] CHRISTIAN MYERSNE Self - patient is the insured 3 Dental [employer] [place] [address] [place] [address] [id number] CHRISTIAN MYERSNE Self - patient is the insured 3 Dental Wrap [employer] [address] [place] [address] [id number] GÓMEZ MYERS Self - patient is the insured 3 ap [facility] [address] [place] [address] [id number] GÓMEZ MYERS Self - patient is the insured 3 Medical (General) History Medical History History ICD Code ARTHRITIS PTSD ANXIETY Bipolar Surgical History Surgery Date(Month/Year) KNEE INJURY D&C 03/2024
--- OUTSIDE RECORDS SUMMARY | 2025-04-17 09:57 | XMS_ITS | Encounter Summary ---
Author Organization [facility] Address [address] [place] [address] Care Team Providers Care Inspector Machined Parts Name Role Phone Hira Reaves Unavailable Rell Goldsmith MD Primary Care Provider [phone] Encounter Details Date Type Department Care Team (Late st Contact Info) Description 02/12/2024 Clinisync Result Encounter [facility] External Department Unsolicited Fabian Blackburn, DO [address] [place] [address] Social History Tobacco Use Types Packs/Day Years [...] Sawant's cyst. OTHER: No other significant abnormality. Report [...] on filedocumented in this encounter Care Teams Inspector Machined Parts Relationship Specialty Start Date End Date Hira Reaves PA [address] [place] [address] PCP - [facility] 11/22/22 02/21/24 Rell Goldsmith MD [address] [place] [address] PCP - General Internal Medicine 02/17/23 documented as of this encounter
--- OUTSIDE RECORDS SUMMARY | 2025-04-17 09:58 | XMS_ITS | Clinical Summary ---
Author Organization [facility] Healthcare Address [address] [place] [address] Care Team Providers Care [employer] Name Role Phone Rell Goldsmith MD Primary Care Provider [phone] Allergies No known active allergies Medications ibuprofen 800 MG tablet 1 tablet Orally 3 times a day -PRN for 7 days Active acetaminophen (Tylenol 8 Hour) 650 MG ER tablet Take 650 mg by mouth every 8 (eight) hours if needed for mild pain. Do not crush, chew, or split. Active traZODone (Desyrel) 50 MG tablet 02/23/2024 Active gabapentin (Neurontin) 400 MG capsule 1 capsule every 12 (twelve) hours 04/19/2024 Active hydrOXYzine pamoate (Vistaril) 25 MG capsule 1 capsule 04/19/2024 Active ALPRAZolam (Xanax) 0.5 MG tablet every 12 (twelve) hours 08/31/2024 Active busPIRone (Buspar) 5 MG tablet Oral; Duration: 30 Days Active Vraylar 3 MG capsule 1 capsule 1 (one) time each day at the same time 04/19/2024 Active carBAMazepine (TEGretol) 200 MG tablet every 12 (twelve) hours 11/09/2024 Active cephalexin (Keflex) 500 MG capsule 02/25/2025 Active dicyclomine (Bentyl) 10 MG capsule 02/25/2025 Active QUEtiapine (SEROquel) 100 MG tablet 1 (one) time each day at the same time 04/19/2024 Active topiramate (Topamax) 25 MG tablet 02/28/2025 Active Active Problems No known active problems Encounters Date Type Department Care Team Description 03/17/2025 1:30 PM EDT Ancillary Procedure [facility] [address] [place] [address] Right knee pain, unspecified chronicity; Sprain of anterior cruciate ligament of right knee, initial encounter 03/17/2025 Travel 03/02/2025 1:00 PM EDT Office Visit [facility] [address] [place] [address] Fabian Blackburn DO Right knee pain, unspecified chronicity (Primary Dx) 03/02/2025 11:05 AM EDT Ancillary Procedure [facility] [address] [place] [address] 03/02/2025 Travel from Last 3 Months Family History Medical History Relation Name Comments [...] - Inhaled Oxygen Concentration - - Weight 92.1 kg (203 lb) 03/02/2025 12:58 PM EDT Height 157.5 cm (5' 2 ) 03/02/2025 12:58 PM EDT Body Mass Index 37.13 03/02/2025 12:58 PM EDT Plan of Treatment Not on file Procedures Procedure Name Priority Date/Time Associated Diagnosis Comments MR KNEE RIGHT WO IV CONTRAST Routine 03/17/2025 1:48 PM EDT Right knee pain, unspecified chronicity Sprain of anterior cruciate ligament of right knee, initial encounter XR KNEE 1-2 VIEWS RIGHT Routine 03/02/2025 11:01 AM EDT Right knee pain, unspecified chronicity from Last 3 Months Results * MR knee right wo IV contrast (03/17/2025 1:48 PM EDT) Anatomical Region Laterality Modality Lower Extremities, Knee Right Magnetic Resonance 03/17/2025 2:50 PM EDT Impressions 03/17/2025 2:52 PM EDT Centrally displaced bucket-handle tear of the medial meniscus. ELECTRONICALLY SIGNED BY: DO Annemarie Chowdhury 03/17/2025 2:52 PM EDT Exam: MR KNEE RIGHT WO IV CONTRAST History: Knee pain. History of ACL tear. Technique: Multiplanar multisequence MRI of the knee was performed without contrast. Comparison: Radiographs March 02, 2025 Findings: Quadriceps and patellar tendons are intact. Small joint effusion. Abnormal signal and morphology of the anterior cruciate ligament compatible with prior tear with scarring. The posterior cruciate ligament is intact. The medial collateral ligament, lateral collateral ligament, and popliteus are intact. Centrally displaced bucket-handle tear of the medial meniscus. The lateral meniscus is intact. Tiny subcortical cyst formation and minimal bone marrow edema within the outer weightbearing lateral femoral condyle secondary to tiny full-thickness cartilage defects. Partial-thickness cartilage loss of the weightbearing medial femoral condyle without well-defined cartilage defect. Popliteal fossa structures are intact. No Sawant cyst. Procedure Note Salomon Crowell DO - 03/17/2025 Exam: MR KNEE RIGHT WO IV CONTRAST History: Knee pain. History of ACL tear. Technique: Multiplanar multisequence MRI of the knee was performed withoutcontrast. Comparison: Radiographs March 02, 2025 Findings: Quadriceps and patellar tendons are intact. Small joint effusion. Abnormal signal and morphology of the anterior cruciate ligamentcompatible with prior tear with scarring. The posterior cruciate ligamentis intact. The medial collateral ligament, lateral collateral ligament, and popliteusare intact. Centrally displaced bucket-handle tear of the medial meniscus. The lateralmeniscus is intact. Tiny subcortical cyst formation and minimal bone marrow edema within theouter weightbearing lateral femoral condyle secondary to tinyfull-thickness cartilage defects. Partial-thickness cartilage loss of theweightbearing medial femoral condyle without well-defined cartilagedefect. Popliteal fossa structures are intact. No Sawant cyst. IMPRESSION: Centrally displaced bucket-handle tear of the medial meniscus. ELECTRONICALLY SIGNED BY: Salomon Crowell DO Fabian Blackburn DO IMG MRI PROCEDURES Final Result * XR knee 1 or 2 views right (03/02/2025 11:01 AM EDT) Anatomical Region Laterality Modality Lower Extremities, Knee Right [facility] Imaging Narrative 03/03/2025 3:45 PM EDT Imaging Result: 2 views, bilateral PA weight-bearing, sunrise, of the knee(s) taken today and saved to the permanent medical record are reviewed. AP/lateral/obliques right knee taken at outside facility 10/04/2024 also reviewed. No acute osseous abnormalities. Slight lateral tilting of both patella. Small spur at the lateral femoral condyle of the right knee. Tunnels visible at the left knee from ACL reconstruction with no tunnel widening. Buttons unchanged in position at the distal femur and proximal tibia at the left knee. Joint spaces are preserved. Fabian Blackburn DO IMG XR PROCEDURES Final Result from Last 3 Months Insurance [employer] Care Teams [employer] Relationship Specialty Start Date End Date Rell Goldsmith MD [address] [place] [address] PCP - General Internal Medicine 02/17/23
--- OUTSIDE RECORDS SUMMARY | 2025-04-17 09:58 | XMS_ITS | Patient Health Record ---
Author Organization [facility] Address [facility] [id number] [place] [address] Support Name Relationship Address Phone GÓMEZ MYERS Guarantor Unknown Reason For Referral No Information Plan Of Treatment No Information
--- NOTE | 2025-04-17 10:15 | ED.GENADUL1 ---
HPI HPI - General Adult General Chief complaint: Abdominal Pain Stated complaint: PELVIC PAIN Time Seen by Provider: 04/17/25 10:00 Mode of arrival: walk-in Limitations: no limitations History of Present Illness HPI narrative: Patient is a 30-year-old female presenting to the emergency department for concerns of lower abdominal pain, left flank pain, nausea, vomiting worsening over the last 4 days. She states the pain started in the lower part of her abdomen, and now is radiating to her left flank. She had a few episodes of vomiting today as well. Patient states that feels like a tight, sharp/stabbing pain. She states she has never had symptoms like this in the past. She denies being , her last menstrual cycle was 2 weeks ago. She denies any dysuria or hematuria or urinary frequency. She denies any vaginal discharge. She is sexually active, does not use contraception. She denies history of kidney stones. She denies any constipation or diarrhea. No chest pain or shortness of breath. No fevers or chills. Related Data Home Medications ?Medication ?Instructions ?Recorded ?Confirmed carbamazepine 200 mg tablet 200 mg PO DAILY 02/18/25 04/17/25 cariprazine 3 mg capsule (Vraylar) 3 mg PO DAILY 02/18/25 02/18/25 quetiapine 100 mg tablet 100 mg PO DAILY 04/17/25 04/17/25 topiramate 25 mg tablet 25 mg PO DAILY 04/17/25 04/17/25 Previous Rx's ?Medication ?Instructions ?Recorded doxycycline hyclate 100 mg capsule 100 mg PO BID 7 days #14 caps 04/17/25 metronidazole 500 mg tablet 500 mg PO BID 7 days #14 tabs 04/17/25 Allergies Allergy/AdvReac Type Severity Reaction Status Date / Time No Known Drug Allergies Allergy Verified 04/17/25 09:57 Opioid HPI Opioid Management Most Recent Opioid Data: Last Pain Scale 8 Today, 09:57 Ur Phencyclidine Scrn, (NEGATIVE) Negative 02/18/25, 14:14 Review of Systems ROS Status of ROS 10 or more systems reviewed and unremarkable except as noted in history and below PFSH PFSH Social History Little interest or pleasure in doing things: not at all Feeling down, depressed, or hopeless: not at all Exam Narrative Exam Narrative: CONSTITUTIONAL: Patient appears uncomfortable, but nontoxic and mentating appropriately. Answering questions and following commands SKIN: Was warm and dry. EYES: Sclerae white. EARS, NOSE, THROAT: Moist oral mucosa. RESPIRATORY: Clear to auscultation bilaterally, no wheezes, crackles, or stridor, no use of accessory muscles CARDIOVASCULAR: Normal rate and regular rhythm. There is no S3, S4, murmur, rub. GASTROINTESTINAL: There is mild tenderness to palpation throughout the lower abdomen,, more localized to the left lower quadrant. There is positive left CVA tenderness. There is no rebound tenderness or guarding. No peritoneal signs. No tenderness at McBurney's point. No right upper quadrant tenderness. MUSCULOSKELETAL: No peripheral edema. NEUROLOGIC: Patient is awake and alert. Facies were symmetrical. PELVIC: Pelvic exam performed with a female director of business applications demonstrated mild amount of purulent cervical discharge. She has no cervical motion tenderness on bimanual exam, but has some left adnexal discomfort. The external female genitalia is normal without ulcerations or vesicles. Constitutional Vital Signs, click to edit/add: Last Vital Signs Temp 98.1 F 04/17/25 09:57 Pulse 97 H 04/17/25 09:57 Resp 16 04/17/25 09:57 BP 146/81 H 04/17/25 09:57 Pulse Ox 98 04/17/25 09:57 O2 Del Method Room Air 04/17/25 09:57 Course Vital Signs Vital signs: Vital Signs Temperature 98.1 F 04/17/25 09:57 Pulse Rate 97 H 04/17/25 09:57 Respiratory Rate 16 04/17/25 09:57 Blood Pressure 146/81 H 04/17/25 09:57 Pulse Oximetry 98 04/17/25 09:57 Oxygen Delivery Method Room Air 04/17/25 09:57 Temperature 98.1 F 04/17/25 09:57 Pulse Rate 97 H 04/17/25 09:57 Respiratory Rate 16 04/17/25 09:57 Blood Pressure 146/81 H 04/17/25 09:57 Pulse Oximetry 98 04/17/25 09:57 Oxygen Delivery Method Room Air 04/17/25 09:57 Medical Decision Making MDM Narrative Medical decision making narrative: Patient is a 30-year-old female presenting to the emergency department with a 4-day history of lower abdominal pain that is now radiating to the left flank, nausea, and vomiting. Vital signs on arrival are within normal limits. She is afebrile and hemodynamically stable. Examination as noted above, however was notable for positive left CVA tenderness and left lower abdominal tenderness without peritoneal signs. She also has mild purulent discharge on pelvic exam with mild left adnexal tenderness. Differential diagnosis includes pyelonephritis, cystitis, STD, colitis/enteritis, or other associated electrolyte/metabolic derangement. Patient's exam is not consistent with surgical etiologies of abdominal pain such as appendicitis, cholecystitis, or perforated viscus. She has no cervical motion tenderness to suggest PID. IV was established and laboratory studies were obtained. Cervical swabs were sent off for G/C/T. CT abdomen/pelvis with IV contrast was ordered. She was given IV Toradol, IV famotidine, and IV Zofran for symptomatic treatment. Laboratory studies were unremarkable. No significant electrolyte or metabolic derangement. No evidence of acute kidney injury. She is mildly anemic, but just got off her menstrual cycle. No leukocytosis, or thrombocytopenia. No transaminitis or hyperbilirubinemia. test negative. Urinalysis was negative for acute infection. CT abdomen/pelvis independently reviewed/interpreted by myself and attending demonstrated no acute intra-abdominal/intrapelvic abnormalities. There is small amount of free fluid in the pelvis. There is no evidence of tubo-ovarian abscess. At this time, the results of the patient's workup have been unremarkable other than small free fluid in the pelvis and purulent cervical discharge. Her presentation may be related to cervicitis/STD/or a ruptured ovarian cyst. She does have a new sexual partner within the last 1 month. I did elect to empirically treat the patient for STDs with IM ceftriaxone, oral doxycycline, and oral metronidazole while here in the ED. I do believe the patient stable for discharge. She was given a prescription for doxycycline 100 mg and metronidazole 500 g twice daily x 7 days. She was instructed follow-up with her PCP in the next 5 days for further care. Return precautions were given including any new or concerning symptoms. Patient understands and agrees the plan. FINAL IMPRESSION: #Acute lower abdominal/pelvic pain, likely secondary to STD DISPOSITION: Discharged home CONDITION: Good Medical Records Medical records reviewed: Yes I reviewed the patient's medical records Lab Data Lab results reviewed: Yes I reviewed the patient's lab results Labs: Lab Results 04/17/25 04/17/25 Range/Units 09:50 10:35 WBC 7.7 (4.0-11.0) 10^3/uL RBC 4.19 L (4.20-5.40) 10^6/uL Hgb 11.7 L (12.0-16.0) g/dL Hct 36.3 (36.0-48.0) % MCV 86.6 (81.0-99.0) fL MCH 27.9 (26.7-34.0) pg MCHC 32.2 (29.9-35.2) g/dL RDW 11.7 (11.0-15.0) % Plt Count 288 (150-450) 10^3/uL MPV 8.7 L (9.5-13.5) fL Neut % (Auto) 69.6 (43.0-75.0) % Lymph % (Auto) 21.6 (20.5-60.0) % [place] % (Auto) 7.9 (1.7-12.0) % Eos % (Auto) 0.5 L (0.9-7.0) % Baso % (Auto) 0.3 (0.2-2.0) % Neut # (Auto) 5.4 (1.4-6.5) 10^3/uL Lymph # (Auto) 1.7 (1.2-3.8) 10^3/uL [place] # (Auto) 0.6 (0.3-0.8) 10^3/uL Eos # (Auto) 0.0 (0.0-0.7) 10^3/uL Baso # (Auto) 0.0 (0.0-0.1) 10^3/uL Abs Immat Gran (auto) 0.01 (0.00-0.03) 10^3/uL Imm/Tot Granulo (auto) 0.1 (0.0-0.5) % Sodium 140 (136-145) mmol/L Potassium 3.9 (3.5-5.1) mmol/L Chloride 106 (98-107) mmol/L Carbon Dioxide 21.2 (21.0-32.0) mmol/L Anion Gap 16.7 BUN 9.0 (7.0-18.0) mg/dL Creatinine 0.46 L (0.55-1.02) mg/dL Est GFR ( Amer) >60 (>=60 mL/min/1.73m^2) Est GFR (Non-Af Amer) >60 (>=60 mL/min/1.73m^2) BUN/Creatinine Ratio 19.6 Glucose 104 (74-106) mg/dL Calcium 8.5 (8.5-10.1) mg/dL Total Bilirubin 0.2 (0.2-1.0) mg/dL AST 22 (15-37) U/L ALT 30 (14-59) U/L Alkaline Phosphatase 79 (46-116) U/L Total Protein 7.2 (6.4-8.2) g/dL Albumin 4.1 (3.4-5.0) g/dL Globulin 3.1 g/dL Albumin/Globulin Ratio 1.3 Serum HCG, Qual Negative (NEGATIVE) Urine Color Yellow (YELLOW) Urine Clarity Clear (CLEAR) Urine pH 8.0 (5.0-9.0) Ur Specific [place] 1.015 (1.005-1.025) Urine Protein Negative (NEG/TRACE) mg/dL Urine Glucose (UA) Negative (NEGATIVE) mg/dL Urine Ketones Negative (NEGATIVE) mg/dL Urine Occult Blood Negative (NEGATIVE) Urine Nitrite Negative (NEGATIVE) Urine Bilirubin Negative (NEGATIVE) Urine Urobilinogen 0.2 (0.2-1.0) EU/dL Ur Leukocyte Esterase Negative (NEGATIVE) Urine RBC 0-2 (0-2) #/HPF Urine WBC 2-5 A (NONE SEEN) #/HPF Ur Squamous Epith Cells Few A (NONE/RARE) #/LPF Urine Crystals None seen (None Seen) #/HPF Urine Bacteria Trace A (NONE SEEN) #/HPF Urine Casts None seen (NONE SEEN) #/LPF Urine Mucus None seen (NONE SEEN) Ur Culture Indicated? No Imaging Data CT scan - abdomen: Attestation: I personally reviewed and interpreted this imaging study as follows: Radiologist's impression: ITS Impressions Abdomen/Pelvis CT 04/17/25 12:25 IMPRESSION: NO BOWEL OR URINARY TRACT OBSTRUCTION. SIMILAR INDETERMINANT RENAL HYPODENSITIES, PREDOMINANTLY ON THE RIGHT. FOLLOW-UP ULTRASOUND COULD BE CONSIDERED TO DETERMINE IF THESE ARE COMPLEX CYSTIC VERSUS SOLID. BORDERLINE URINARY BLADDER WALL THICKENING. CORRELATION IS RECOMMENDED TO EXCLUDE ANY POSSIBILITY OF CYSTITIS. TRACE AMOUNT OF DEPENDENT FREE PELVIC FLUID, PROBABLY PHYSIOLOGIC. NO OTHER ACUTE FINDINGS. Impression dictated by: Melly Wise M.D. 04/17/2025 12:37 PM Dictation Location: [place] Electronically authenticated by: [id number] Y Date: 04/17/2025 12:37 Discharge Plan Discharge Chief Complaint: Abdominal Pain Clinical Impression: Possible exposure to STD Patient Disposition: Home, Self-Care Time of Disposition Decision: 12:47 Condition: Good Mode of Transportation: Private Vehicle Prescriptions / Home Meds: New doxycycline hyclate 100 mg capsule 100 mg PO BID 7 Days Qty: 14 0RF metronidazole 500 mg tablet 500 mg PO BID 7 Days Qty: 14 0RF No Action carbamazepine 200 mg tablet 200 mg PO DAILY Vraylar 3 mg capsule 3 mg PO DAILY quetiapine 100 mg tablet 100 mg PO DAILY topiramate 25 mg tablet 25 mg PO DAILY Print Language: Lao Instructions: Cervicitis (ED) Referrals: [facility] [Primary Care Provider] - 1 week
[2025-04-17] MEDS: KETOROLAC TROMETHAMINE 30 MG/ML VIAL 15 MG IVP (10:22)
[2025-04-17] MEDS: 0.9 % SODIUM CHLORIDE 1,000 ML 1000 ML IV (10:22)
[2025-04-17 10:44] LABS: Hematocrit 36.3 % (36.0-48.0); Hemoglobin 11.7 g/dL (12.0-16.0); Immature Granulocytes Abs Auto 0.01 10^3/uL (0.00-0.03); Immature Granulocytes Pct Auto 0.1 % (0.0-0.5); Lymphocytes Absolute Auto 1.7 10^3/uL (1.2-3.8); Mean Corpuscular HGB Conc 32.2 g/dL (29.9-35.2); Mean Corpuscular Hemoglobin 27.9 pg (26.7-34.0); Mean Corpuscular Volume 86.6 fL (81.0-99.0); Platelet Count 288 10^3/uL (150-450); Red Blood Count 4.19 10^6/uL (4.20-5.40); White Blood Count 7.7 10^3/uL (4.0-11.0)
[2025-04-17 10:51] LABS: Glucose Urine UA NEGATIVE (NEGATIVE)
[2025-04-17 11:00] LABS: Cast Seen? NONE SEEN #/LPF (NONE SEEN); Crystals Seen? None Seen #/HPF (None Seen); Urine Culture Indicated NO
[2025-04-17 11:02] LABS: Alanine Aminotransferase 30 U/L (14-59); Albumin Globulin Ratio 1.3; Albumin Level 4.1 g/dL (3.4-5.0); Alkaline Phosphatase 79 U/L (46-116); Anion Gap 16.7; Aspartate Amino Transferase 22 U/L (15-37); Blood Urea Nitrogen 9.0 mg/dL (7.0-18.0); Calcium 8.5 mg/dL (8.5-10.1); Carbon Dioxide 21.2 mmol/L (21.0-32.0); Chloride 106 mmol/L (98-107); Estimated GFR (African America >60 (>=60 mL/min/1.73m^2); Estimated GFR (Non-African Ame >60 (>=60 mL/min/1.73m^2); Globulin 3.1 g/dL; Glucose 104 mg/dL (74-106); Potassium 3.9 mmol/L (3.5-5.1); Sodium 140 mmol/L (136-145); Total Protein 7.2 g/dL (6.4-8.2)
--- NOTE | 2025-04-17 12:25 | CT_ITS ---
The [address] [address] Patient Name: GÓMEZ MYERS MRN: [id number] date: 1995 Sex: F Assigned Patient Location: ER Current Patient Location: ER Accession/Order Number: [id number] Exam Date: 04/17/2025 12:14 Report Date: 04/17/2025 12:37 At the request of: ANTHONY ROSADO DO Procedure: CT abdomen pelvis w con CT ABDOMEN AND PELVIS WITH CONTRAST COMPARISON: 02/18/2025 CLINICAL DATA: Left lower quadrant and left flank pain for the past 4 days with nausea. Spiral images were obtained through the abdomen and pelvis following partially 50 mL of Omnipaque 300. Patient's IV infiltrated. This CT exam was performed using one or more following dose reduction techniques: Automated exposure control, adjustment of the mA and/or kV according to patient size, or use of iterative reconstruction technique. Limited cuts through the lung bases show no contributory findings. There are no obvious calcified gallstones. No intrahepatic masses are seen. The spleen, pancreas and adrenal glands show no acute findings. There are symmetric renal nephrograms, without hydronephrosis. Multiple hypodense right renal nodules are again seen measuring up to almost 2 cm in size. These were noted at the time of the prior and are not definitely simple cysts. A similar tiny exophytic hypodensity is again seen on the left. The abdominal aorta is normal caliber. There are similar small retroperitoneal and mesenteric lymph nodes. There is no ascites. There is a tiny umbilical hernia containing fat. The small bowel loops are not distended. There is some colonic stool, greater on the right. There are portions of the left colon which are under distended and have apparent wall thickening. Subtle levoscoliotic curvature is noted. Images through the pelvis show normal caliber small bowel loops. No appendiceal inflammation is seen. There is a small amount of distal colonic stool. No diverticular disease is noted. The uterus shows subtle dextroversion. There are no dominant adnexal cysts. A trace amount free fluid is seen at the posterior cul-de-sac, probably physiologic. The urinary bladder wall is top normal in thickness for the degree of distention. There are no intraluminal abnormalities. CT/CT abdomen pelvis w con IMPRESSION: NO BOWEL OR URINARY TRACT OBSTRUCTION. SIMILAR INDETERMINANT RENAL HYPODENSITIES, PREDOMINANTLY ON THE RIGHT. FOLLOW-UP ULTRASOUND COULD BE CONSIDERED TO DETERMINE IF THESE ARE COMPLEX CYSTIC VERSUS SOLID. BORDERLINE URINARY BLADDER WALL THICKENING. CORRELATION IS RECOMMENDED TO EXCLUDE ANY POSSIBILITY OF CYSTITIS. TRACE AMOUNT OF DEPENDENT FREE PELVIC FLUID, PROBABLY PHYSIOLOGIC. NO OTHER ACUTE FINDINGS. Impression dictated by: Melly Wise M.D. 04/17/2025 12:37 PM Dictation Location: [place] [address] Electronically authenticated by: [id number] Y Date: 04/17/2025 12:37
[2025-04-17] MEDS: MORPHINE SULFATE 4 MG/ML VIAL IM (12:26)
[2025-04-17] MEDS: DOXYCYCLINE MONOHYDRATE 100 MG CAPSULE PO (13:05)
[2025-04-17] MEDS: CEFTRIAXONE 500 MG, LIDOCAINE HCL/PF 1 ML IM (13:05)
[2025-04-17] MEDS: METRONIDAZOLE 250 MG TABLET 500 MG PO (13:05)
[2025-04-18 20:09] LABS: Neisseria gonorrhoeae, NAA Negative (Negative)
== END 2025-04-17 13:16 | disposition home or self-care (01) ==
PROVIDERS: Emergency Provider Student in an Organized Health Care Education/Training Program
DX: Z20.2 Contact with and (suspected) exposure to infections with a predominantly sexual mode of transmission (principal); R10.30 Lower abdominal pain, unspecified
CPT/HCPCS: 36415; 74177; 80053; 81001; 84703; 85025; 87491; 87591; 87660; 96361; 96372; 96374; 96375; 99284; J0696; J1885; J2270; J2405; Q9967